=== PATIENT | female | born 1935 | race Caucasian/White ===

== ENCOUNTER 2016-09-13 15:39 | Inpatient (IN) | payer MEDICARE ==
[2016-09-13] VITALS (10 sets, daily range): BP systolic 166–210; BP diastolic 77–110
[~2016-09-13] VITALS: Ht 160 cm; Wt 68.0 kg
--- NOTE | ~2016-09-13 | EKG ---
[place], [place] ELECTROCARDIOGRAM REPORT NAME: KATIE EASTON UNIT #: [id number] ROOM: 406 DOCTOR: SHANKAR HAWTHORNE MD BIRTHDATE: [birth year] DOS: 09/13/2016 TIME: 16 hours and 10 minutes. EKG shows sinus rhythm at the heart rate of 64 beats per minute. Normal cardiac axis. Some nonspecific ST-T abnormality. No previous EKG available for comparison. SHANKAR HAWTHORNE MD CM:EKGRPT:ELECTROCARDIOGRAM REPORT [id number] SHANKAR HAWTHORNE MD
[~2016-09-13 15:39] MED LIST: AMLODIPINE5 MG PO; ATOXIMETIN-B1 CAP; B12,B-12,B 12500 MC1 PO; BACTRIM DS 8001 TA1 PO; CALCIUM 500500 M1 PO; CALCIUM 600600 M2 PO; CEPACOL2 M1 MM; CIPRO250 MG PO; CITALOPRAM10 MG PO; COLACE100 MG PO; CYMBALTA20 M1 PO; CYMBALTA30 MG PO; Cimetidine300 MG PO; Ciprofloxacin2.5 ML OT; FLEXERIL5 MG PO; HYDROCODONE BIT1 T11 PO; LOPRESSOR25 MG PO; LOVENOX30 MG/0.3 SC; MAPAP325 MG PO; METOPROLOL SUCC50 M1 PO; MIRALAX17 GM/DOSE PO; MULTIPLE VITAMI1 TAB PO; NORVASC5 MG PO; OXYCODONE5 M1 PO; Oscal,Oyster S500 MG PO; PREDNISONE5 MG; PRESERVISION1 SGL PO; PROAIR HFA0.09 MG/AC INH; SEPTRA DS 800 M1 TAB PO; TEARS NATURALE,15 ML OPH; VITAMIN D31000 IU PO; VITAMIN D3400 UNIT PO; ZOFRAN ODT4 MG SL
[2016-09-13] MEDS ORDERED: VITAMIN D3400 UNIT PO (15:41)
[2016-09-13] MEDS ORDERED: ALENDRONATE SOD35 M1 PO (15:42)
[2016-09-13] MEDS ORDERED: CRESTOR5 MG PO (15:43)
[2016-09-13] MEDS ORDERED: METOPROLOL SUCC50 M1 PO (15:45)
[2016-09-13] MEDS ORDERED: GENTEAL OP (15:45)
[2016-09-13] MEDS ORDERED: ZYRTEC10 MG PO (15:46)
[2016-09-13 16:27] LABS: BASO # 0.1 10*3/uL (0.0-0.1); BASO % 1.7 % (0.0-1.0); EOS # 0.2 10*3/uL (0.0-0.4); EOS % 3.5 % (1.0-4.0); HEMATOCRIT 41.3 % (37.0-47.0); HEMOGLOBIN 13.1 g/dl (12.0-16.0); LYMPH # 1.4 10*3/uL (1.3-4.4); LYMPH % 23.3 % (27.0-41.0); MEAN CELL VOLUME 92.2 fl (81.0-99.0); MEAN CORPUSCULAR HGB 29.2 pg (27.0-31.0); MEAN CORPUSCULAR HGB CONC 31.7 g/dl (33.0-37.0); MEAN PLATELET VOLUME 9.6 fl (9.6-12.3); MONO # 0.6 10*3/uL (0.1-1.0); MONO % 9.8 % (3.0-9.0); NEUT # 3.7 10*3/uL (2.3-7.9); NEUT % 61.4 % (47.0-73.0); PLATELET COUNT AUTOMATED 254 10*3/uL (130-400); RED BLOOD COUNT 4.48 10*6/uL (4.10-5.10); RED CELL DISTRI WIDTH 12.6 % (0-14.5)
[2016-09-13 16:36] LABS: INTERNATIONAL NORM RATIO 0.9 (2.0-3.5)
[2016-09-13 16:45] LABS: ALBUMIN 3.2 gm/dl (3.1-4.5); BILIRUBIN, TOTAL 0.2 mg/dl (0.2-1.0); BUN 18 mg/dl (7-24); CARBON DIOXIDE 29 mmol/L (21-32); CHLORIDE 105 mmol/L (98-107); EST GLOM FILT AFRICAN AMERICAN > 60 ml/min; GLUCOSE 93 mg/dL (65-99); MAGNESIUM 2.5 mg/dL (1.5-2.1); POTASSIUM 4.1 mmol/L (3.5-5.1); SGOT/AST 25 IU/L (3-35); SGPT/ALT 21 U/L (12-78); SODIUM 141 mmol/L (136-145)
[2016-09-13 16:47] LABS: ALKALINE PHOSPHATASE 86 U/L (45-117)
[2016-09-14] VITALS (11 sets, daily range): BP systolic 131–200; BP diastolic 53–90
[2016-09-14 06:12] LABS: BASO # 0.1 10*3/uL (0.0-0.1); BASO % 1.3 % (0.0-1.0); CKMB 1.2 ng/ml (0.5-3.6); EOS # 0.2 10*3/uL (0.0-0.4); EOS % 3.7 % (1.0-4.0); HEMATOCRIT 36.4 % (37.0-47.0); HEMOGLOBIN 11.7 g/dl (12.0-16.0); LYMPH # 0.9 10*3/uL (1.3-4.4); LYMPH % 19.1 % (27.0-41.0); MEAN CELL VOLUME 90.5 fl (81.0-99.0); MEAN CORPUSCULAR HGB 29.1 pg (27.0-31.0); MEAN CORPUSCULAR HGB CONC 32.1 g/dl (33.0-37.0); MEAN PLATELET VOLUME 9.4 fl (9.6-12.3); MONO # 0.5 10*3/uL (0.1-1.0); MONO % 11.6 % (3.0-9.0); NEUT % 64.1 % (47.0-73.0); PLATELET COUNT AUTOMATED 222 10*3/uL (130-400); RED BLOOD COUNT 4.02 10*6/uL (4.10-5.10); RED CELL DISTRI WIDTH 12.6 % (0-14.5); WHITE BLOOD COUNT 4.7 10*3/uL (4.8-10.8)
[2016-09-14 06:28] LABS: ALBUMIN 2.9 gm/dl (3.1-4.5); ALKALINE PHOSPHATASE 69 U/L (45-117); BILIRUBIN, TOTAL 0.3 mg/dl (0.2-1.0); BUN 14 mg/dl (7-24); CARBON DIOXIDE 29 mmol/L (21-32); CHLORIDE 104 mmol/L (98-107); EST GLOM FILT AFRICAN AMERICAN > 60 ml/min; GLUCOSE 88 mg/dL (65-99); POTASSIUM 4.1 mmol/L (3.5-5.1); SGOT/AST 20 IU/L (3-35); SGPT/ALT 16 U/L (12-78); SODIUM 141 mmol/L (136-145)
[2016-09-14 06:33] LABS: PROTHROMBIN TIME 10.2 SECONDS (9.0-12.4)
[2016-09-14 06:39] LABS: FREE T4 0.95 ng/dl (0.76-1.46); THYROID STIM HORMONE (HS) 2.83 uIU/ml (0.358-4.75)
[2016-09-14 07:42] LABS: FOLIC ACID 17.29 ng/mL (>5.38)
[2016-09-14 07:55] LABS: HEMOGLOBIN A1c 5.5 % (4.8-5.6)
[2016-09-14 12:11] LABS: CKMB 1.1 ng/ml (0.5-3.6)
[2016-09-15] VITALS: BP 165/62
[2016-09-15 04:00] VITALS: BP 172/72
[2016-09-15 08:00] VITALS: BP 154/60
[2016-09-15 08:13] VITALS: BP 168/82
[2016-09-15] MEDS ORDERED: AMLODIPINE BESYL5 MG PO (11:09)
[2016-09-15] MEDS ORDERED: LISINOPRIL20 MG PO (11:09)
[2016-09-15 12:00] VITALS: BP 151/73
== END 2016-09-15 14:45 | disposition home or self-care (01) | DRG 683 ==
LOC: ED 15:39 → EDHOLD 18:08 → 4E 18:44
PROVIDERS: Internal Medicine; Registered Nurse
DX: I12.9 Hypertensive chronic kidney disease with stage 1 through stage 4 chronic kidney disease, or unspecified chronic kidney disease (principal); E44.0 Moderate protein-calorie malnutrition; J84.10 Pulmonary fibrosis, unspecified; E83.41 Hypermagnesemia; N18.3 Chronic kidney disease, stage 3 (moderate); J44.9 Chronic obstructive pulmonary disease, unspecified; F32.9 Major depressive disorder, single episode, unspecified; G30.9 Alzheimer's disease, unspecified; F02.80 Dementia in other diseases classified elsewhere, unspecified severity, without behavioral disturbance, psychotic disturbance, mood disturbance, and anxiety; M81.0 Age-related osteoporosis without current pathological fracture; D64.9 Anemia, unspecified; D72.819 Decreased white blood cell count, unspecified; E55.9 Vitamin D deficiency, unspecified; Z68.26 Body mass index [BMI] 26.0-26.9, adult; Z87.81 Personal history of (healed) traumatic fracture; Z90.710 Acquired absence of both cervix and uterus; Z98.890 Other specified postprocedural states; Z79.899 Other long term (current) drug therapy; Z88.0 Allergy status to penicillin; Z88.8 Allergy status to other drugs, medicaments and biological substances; Z80.8 Family history of malignant neoplasm of other organs or systems

== ENCOUNTER 2016-12-06 16:15 | Inpatient (IN) | payer MEDICARE ==
[~2016-12-06] VITALS: Ht 162.5 cm; Wt 65.8 kg
--- NOTE | ~2016-12-06 | PR ---
[place], [place] PROGRESS NOTE [id number] UN[facility] #: [id number] ROOM: 309 DOCTOR: KAYLI AMATO BIRTHDATE: [birth year] DOS: CHIEF COMPLAINT: "Good morning." SUMMARY OF VISIT: The patient was assessed in the dining room where she was eating breakfast. She is slow responses to my questions, but was pleasant. Good eye contact. No voiced complaints. MENTAL STATUS: She is alert and oriented to person, place, I do not believe time. Mood definitely trending towards euthymic. Affect is appropriate. There is no bam or hypomania. No overt auditory or visual hallucinations, delusions, or paranoia. Short-term memory is poor. PLAN: Her Exelon patch was maxed out yesterday. I will go ahead and increase her Namenda. The plan is to discharge her possibly as soon as tomorrow if she continues to be stable and tolerate the medication adjustments. BEN AMATO CNP CM:PNTRANS [id number] KAYLI AMATO 12/11/16 1033 interface
--- NOTE | ~2016-12-06 | PR ---
[place], [place] PROGRESS NOTE NAME: KATIE EASTON UNIT #: [id number] ROOM: 309 DOCTOR: ELVIN DENSON MD BIRTHDATE: [birth year] DOS: 12/10/2016 CHIEF COMPLAINT: "I am not feeling well. I do not know what is wrong." SUMMARY OF THE VISIT: The patient was interviewed as she was resting quietly in bed. She was awake and engaged readily in conversation. She was even spontaneous at times, but very superficial. She was bright and pleasant for the most part, although she does report still not feeling quite right, but was not totally able to elucidate what was going on. She denied any medication side effects. Her major complaint focused on being somewhat easily fatigued and tired out. MENTAL STATUS: She is alert and oriented to person, place, not necessarily time. Mood does seem to be trending towards euthymia. Affect is more appropriate. There are no symptoms of bam or hypomania. There are no overt auditory or visual hallucinations noted. Short term memory is poor, otherwise she is fairly intact. PLAN: At this point, I will continue to titrate both the Namenda and the Exelon. I will maximize Exelon patch from 9.5 to 13.3 mg a day, ultimately then planning to increase the Namenda at a later date, maintain her current psychotropic regimen at this point in time, engage in individual and paz milieu activity with the plan then to return to the least restrictive environment when stable. ELVIN DENSON MD CM:PNTRANS [id number] ELVIN DENSON MD 12/10/16 0852 interface
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
--- NOTE | ~2016-12-06 | PR ---
[place], [place] PROGRESS NOTE NAME: KATIE EASTON UNIT #: [id number] ROOM: 310 DOCTOR: ELVIN DENSON MD BIRTHDATE: [birth year] DOS: 12/08/2016 CHIEF COMPLAINT: "Good morning. What is going to happen next?" SUMMARY OF THE VISIT: The patient was interviewed in the dining area where she was sitting with female peers. She engaged readily in conversation. She did report that she remembered me from yesterday stating that she had a good day yesterday and slept well and had a good breakfast. She was somewhat vague on these points and was not able to tell me what she had to eat. She was pleasant, however, and exhibited no agitation or aggression. MENTAL STATUS: She is alert and oriented to person, place but not necessarily time. Mood does seem to be trending towards euthymia and affect is more appropriate. There are no symptoms of bam or hypomania. There are no overt auditory or visual hallucinations. No delusions or paranoia are noted. Short term memory has gaps, otherwise she is intact. PLAN: I will increase her Exelon patch from 4.6 mg daily to 9.5 mg daily to attempt to maximize potential benefits in improving ADLs, behavior, and cognition, engage in individual and paz milieu activity with the plan to return to the least restrictive environment when stable. ELVIN DENSON MD CM:PNTRANS [id number] ELVIN DENSON MD 12/08/16 1002 interface
--- NOTE | ~2016-12-06 | PR ---
[place], [place] PROGRESS NOTE NAME: KATIE EASTON UNIT #: [id number] ROOM: 310 DOCTOR: ELVIN DENSON MD BIRTHDATE: [birth year] DOS: 12/09/2016 CHIEF COMPLAINT: "I just want to stay in bed, thank you." SUMMARY OF THE VISIT: The patient was interviewed as she rested quietly in bed. She was awake and engaged readily in very superficial conversation. She reported that she did not feel well and did not want to get out of bed. She did not elaborate or was not able to elaborate on what exactly was wrong. She was very vague overall. She did remember that she lives in [place], but could not tell me exactly how long she has been here in the hospital. MENTAL STATUS: She is alert and oriented to person, possibly place, but not time. Mood does seem to be rather down and depressed. There are some anxious overtones. She voiced no psychotic symptoms. There was no voiced paranoia. No auditory or visual hallucinations were discussed. She processed slowly and short-term memory was poor. PLAN: I will increase Namenda from 5 mg a day to 5 mg twice daily, augmenting the Exelon patch which is at 9.5 mg a day. Ultimately, I would bring the Exelon patch up to 13.3 mg a day. Continue to engage in individual and paz milieu activity with the plan to return home or to an alternative placement when stable. ELVIN DENSON MD CM:PNTRANS 4 3 ELVIN DENSON MD 12/09/16923 interface
[~2016-12-06 16:15] MED LIST changes: +ALENDRONATE SOD35 M1 PO; +AMLODIPINE BESYL5 MG PO; +CRESTOR5 MG PO; +GENTEAL OP; +LISINOPRIL20 MG PO; +ZYRTEC10 MG PO
[2016-12-06 16:40] VITALS: BP 183/81
[2016-12-06 17:05] LABS: BASO # 0.1 10*3/uL (0.0-0.1); BASO % 1.3 % (0.0-1.0); EOS # 0.1 10*3/uL (0.0-0.4); EOS % 2.4 % (1.0-4.0); HEMATOCRIT 35.7 % (37.0-47.0); HEMOGLOBIN 11.5 g/dl (12.0-16.0); LYMPH # 1.1 10*3/uL (1.3-4.4); LYMPH % 23.9 % (27.0-41.0); MEAN CELL VOLUME 89.5 fl (81.0-99.0); MEAN CORPUSCULAR HGB 28.8 pg (27.0-31.0); MEAN CORPUSCULAR HGB CONC 32.2 g/dl (33.0-37.0); MONO # 0.5 10*3/uL (0.1-1.0); MONO % 11.1 % (3.0-9.0); NEUT # 2.9 10*3/uL (2.3-7.9); NEUT % 61.1 % (47.0-73.0); PLATELET COUNT AUTOMATED 248 10*3/uL (130-400); RED BLOOD COUNT 3.99 10*6/uL (4.10-5.10); RED CELL DISTRI WIDTH 12.9 % (0-14.5); WHITE BLOOD COUNT 4.7 10*3/uL (4.8-10.8)
[2016-12-06 17:19] LABS: ALBUMIN 3.1 gm/dl (3.1-4.5); ALKALINE PHOSPHATASE 78 U/L (45-117); BILIRUBIN, TOTAL 0.3 mg/dl (0.2-1.0); BUN 16 mg/dl (7-24); CARBON DIOXIDE 30 mmol/L (21-32); CHLORIDE 105 mmol/L (98-107); EST GLOM FILT AFRICAN AMERICAN > 60 ml/min; GLUCOSE 94 mg/dL (65-99); POTASSIUM 4.4 mmol/L (3.5-5.1); SGOT/AST 22 IU/L (3-35); SGPT/ALT 19 U/L (12-78); SODIUM 143 mmol/L (136-145); TOTAL PROTEIN 7.3 gm/dL (6.4-8.2)
[2016-12-06 17:42] LABS: BILIRUBIN NEGATIVE (NEGATIVE); BLOOD TRACE-INTACT (NEGATIVE); CLARITY CLEAR (CLEAR); COLOR YELLOW (YELLOW); GLUCOSE NEGATIVE (NEGATIVE); KETONE NEGATIVE (NEGATIVE); LEUKO ESTERASE NEGATIVE (NEGATIVE); NITRITE NEGATIVE (NEGATIVE); PROTEIN NEGATIVE (NEGATIVE); SPECIFIC GRAVITY 1.015 (1.005-1.030); UROBILINOGEN 0.2 E.U./dl (0.2-1.0)
[2016-12-06 17:53] LABS: RBC 0-2 rbc/hpf (0-2); URINE REFLEX COMMENT NO (NO); WBC 0-2 wbc/hpf (0-5)
[2016-12-06 19:50] VITALS: BP 148/75
[2016-12-06 21:46] VITALS: BP 148/75
[2016-12-06 21:48] VITALS: BP 148/75
[2016-12-07 07:17] LABS: BASO # 0.1 10*3/uL (0.0-0.1); BASO % 1.4 % (0.0-1.0); EOS # 0.2 10*3/uL (0.0-0.4); EOS % 4.3 % (1.0-4.0); HEMATOCRIT 36.5 % (37.0-47.0); HEMOGLOBIN 11.9 g/dl (12.0-16.0); LYMPH # 0.8 10*3/uL (1.3-4.4); LYMPH % 23.6 % (27.0-41.0); MEAN CORPUSCULAR HGB CONC 32.6 g/dl (33.0-37.0); MONO # 0.4 10*3/uL (0.1-1.0); MONO % 12.1 % (3.0-9.0); NEUT % 58.6 % (47.0-73.0); PLATELET COUNT AUTOMATED 246 10*3/uL (130-400); WHITE BLOOD COUNT 3.5 10*3/uL (4.8-10.8)
[2016-12-07 07:44] VITALS: BP 128/69
[2016-12-07 07:45] VITALS: BP 128/69
[2016-12-07 07:47] LABS: ALBUMIN 2.9 gm/dl (3.1-4.5); ALKALINE PHOSPHATASE 80 U/L (45-117); BILIRUBIN, TOTAL 0.5 mg/dl (0.2-1.0); BUN 12 mg/dl (7-24); CARBON DIOXIDE 29 mmol/L (21-32); CHLORIDE 106 mmol/L (98-107); EST GLOM FILT AFRICAN AMERICAN > 60 ml/min; GLUCOSE 79 mg/dL (65-99); POTASSIUM 4.2 mmol/L (3.5-5.1); SGOT/AST 26 IU/L (3-35); SGPT/ALT 22 U/L (12-78); SODIUM 144 mmol/L (136-145)
[2016-12-07 08:30] LABS: VITAMIN D, 25-HYDROXY 18.9 ng/mL (30-100)
[2016-12-07 19:54] VITALS: BP 146/82; BP 158/63
[2016-12-07 20:00] VITALS: BP 146/82
[2016-12-08 07:46] VITALS: BP 132/65
[2016-12-08 19:48] VITALS: BP 148/71
[2016-12-08 20:00] VITALS: BP 148/71
[2016-12-09 08:00] VITALS: BP 142/62
[2016-12-09 20:00] VITALS: BP 136/56
[2016-12-09 20:31] VITALS: BP 136/55
[2016-12-10 08:00] VITALS: BP 137/64
[2016-12-10 19:00] VITALS: BP 131/69
[2016-12-10 20:49] VITALS: BP 131/69
[2016-12-11 07:41] VITALS: BP 122/53
[2016-12-11 19:36] VITALS: BP 135/60
[2016-12-12 07:17] VITALS: BP 146/75
[2016-12-12] MEDS ORDERED: NAMENDA-5 PO (08:47)
[2016-12-12] MEDS ORDERED: RISPERIDONE0.25 M2 PO (08:47)
[2016-12-12] MEDS ORDERED: MEMANTINE HCL10 MG PO (08:47)
[2016-12-12] MEDS ORDERED: EXELON13.3 MG/21 T (08:47)
[2016-12-12] MEDS ORDERED: VITAMIN D50000 I3 PO (08:47)
[2016-12-12] MEDS ORDERED: PREDNISONE10 MG PO (08:57)
[2016-12-12] MEDS ORDERED: AVPAK AZITHROM250 M1 PO (08:57)
[2016-12-12 09:02] VITALS: BP 146/75
== END 2016-12-12 14:15 | disposition home or self-care (01) | DRG 57 ==
LOC: ED 16:15 → 3N 19:38
PROVIDERS: Nurse Practitioner Adult Health; Registered Nurse
DX: G30.9 Alzheimer's disease, unspecified (principal); F02.81 Dementia in other diseases classified elsewhere, unspecified severity, with behavioral disturbance; F33.3 Major depressive disorder, recurrent, severe with psychotic symptoms; R00.1 Bradycardia, unspecified; J44.9 Chronic obstructive pulmonary disease, unspecified; F23 Brief psychotic disorder; N18.3 Chronic kidney disease, stage 3 (moderate); I12.9 Hypertensive chronic kidney disease with stage 1 through stage 4 chronic kidney disease, or unspecified chronic kidney disease; R31.29 Other microscopic hematuria; R27.0 Ataxia, unspecified; M81.0 Age-related osteoporosis without current pathological fracture; D64.9 Anemia, unspecified; E55.9 Vitamin D deficiency, unspecified; D72.810 Lymphocytopenia; Z90.710 Acquired absence of both cervix and uterus; Z88.0 Allergy status to penicillin; Z88.8 Allergy status to other drugs, medicaments and biological substances; Z80.8 Family history of malignant neoplasm of other organs or systems

== ENCOUNTER → 2016-12-16 | Outpatient (CLI) | payer MEDICARE ==
[~2016-12-16] MED LIST changes: +AVPAK AZITHROM250 M1 PO; +EXELON13.3 MG/21 T; +MEMANTINE HCL10 MG PO; +NAMENDA-5 PO; +PREDNISONE10 MG PO; +RISPERIDONE0.25 M2 PO; +VITAMIN D50000 I3 PO
== END | disposition home or self-care (01) ==
LOC: RAD 15:16
DX: J98.4 Other disorders of lung (principal); R09.89 Other specified symptoms and signs involving the circulatory and respiratory systems; R68.89 Other general symptoms and signs

== ENCOUNTER 2017-01-12 20:29 | Inpatient (IN) | payer MEDICARE ==
[~2017-01-12] VITALS: Ht 165.1 cm; Wt 63.6 kg
[2017-01-12 20:29] VITALS: BP 127/57
[2017-01-12 20:59] VITALS: BP 127/57
[2017-01-12 21:18] LABS: BASO # 0.1 10*3/uL (0.0-0.1); BASO % 0.9 % (0.0-1.0); EOS # 0.1 10*3/uL (0.0-0.4); EOS % 2.2 % (1.0-4.0); HEMATOCRIT 35.3 % (37.0-47.0); HEMOGLOBIN 11.1 g/dl (12.0-16.0); LYMPH # 0.9 10*3/uL (1.3-4.4); LYMPH % 17.3 % (27.0-41.0); MEAN CELL VOLUME 91.5 fl (81.0-99.0); MEAN CORPUSCULAR HGB 28.8 pg (27.0-31.0); MEAN CORPUSCULAR HGB CONC 31.4 g/dl (33.0-37.0); MEAN PLATELET VOLUME 9.3 fl (9.6-12.3); MONO # 0.4 10*3/uL (0.1-1.0); MONO % 8.2 % (3.0-9.0); NEUT # 3.8 10*3/uL (2.3-7.9); PLATELET COUNT AUTOMATED 248 10*3/uL (130-400); RED BLOOD COUNT 3.86 10*6/uL (4.10-5.10); RED CELL DISTRI WIDTH 12.7 % (0-14.5); WHITE BLOOD COUNT 5.4 10*3/uL (4.8-10.8)
[2017-01-12 21:34] LABS: CKMB 0.5 ng/ml (0.5-3.6); MAGNESIUM 2.3 mg/dL (1.5-2.1); POTASSIUM 3.7 mmol/L (3.5-5.1); TROPONIN I 0.019 ng/ml (<0.045)
[2017-01-12] MEDS ORDERED: FLUOXETINE HCL10 MG PO (21:42)
[2017-01-12] MEDS ORDERED: QUETIAPINE FUMA25 M1 PO (21:42)
[2017-01-12 22:04] LABS: BILIRUBIN NEGATIVE (NEGATIVE); BLOOD NEGATIVE (NEGATIVE); CLARITY SL CLOUDY (CLEAR); COLOR YELLOW (YELLOW); GLUCOSE NEGATIVE (NEGATIVE); KETONE NEGATIVE (NEGATIVE); LEUKO ESTERASE NEGATIVE (NEGATIVE); NITRITE NEGATIVE (NEGATIVE); PH 6.5 (5.0-9.0); PROTEIN NEGATIVE (NEGATIVE); SPECIFIC GRAVITY 1.015 (1.005-1.030); UROBILINOGEN 0.2 E.U./dl (0.2-1.0)
[2017-01-12 22:21] LABS: MUCOUS TRACE; RBC 0-2 rbc/hpf (0-2); WBC 0-2 wbc/hpf (0-5)
[2017-01-12 22:22] LABS: BACTERIA 2+; URINE REFLEX COMMENT YES (NO)
[2017-01-12 23:00] VITALS: BP 121/54
[2017-01-12 23:25] VITALS: BP 121/54
[2017-01-12 23:54] VITALS: BP 121/54
[2017-01-13 04:00] VITALS: BP 118/50
[2017-01-13 06:36] LABS: BASO % 0.6 % (0.0-1.0); CPK 38 U/L (26-192); EOS # 0.1 10*3/uL (0.0-0.4); EOS % 1.9 % (1.0-4.0); HEMATOCRIT 35.8 % (37.0-47.0); HEMOGLOBIN 11.5 g/dl (12.0-16.0); LYMPH # 0.9 10*3/uL (1.3-4.4); LYMPH % 19.7 % (27.0-41.0); MEAN CELL VOLUME 89.9 fl (81.0-99.0); MEAN CORPUSCULAR HGB 28.9 pg (27.0-31.0); MEAN CORPUSCULAR HGB CONC 32.1 g/dl (33.0-37.0); MEAN PLATELET VOLUME 9.4 fl (9.6-12.3); MONO # 0.5 10*3/uL (0.1-1.0); MONO % 10.4 % (3.0-9.0); NEUT # 3.1 10*3/uL (2.3-7.9); NEUT % 67.2 % (47.0-73.0); PLATELET COUNT AUTOMATED 252 10*3/uL (130-400); RED BLOOD COUNT 3.98 10*6/uL (4.10-5.10); RED CELL DISTRI WIDTH 12.7 % (0-14.5); TROPONIN I 0.021 ng/ml (<0.045); WHITE BLOOD COUNT 4.6 10*3/uL (4.8-10.8)
[2017-01-13 06:45] LABS: CKMB < 0.5 ng/ml (0.5-3.6)
[2017-01-13 06:53] LABS: PROTHROMBIN TIME 10.5 SECONDS (9.0-12.4)
[2017-01-13 07:04] LABS: ALBUMIN 2.6 gm/dl (3.1-4.5); ALKALINE PHOSPHATASE 78 U/L (45-117); BILIRUBIN, TOTAL 0.3 mg/dl (0.2-1.0); BUN 15 mg/dl (7-24); CARBON DIOXIDE 28 mmol/L (21-32); CHLORIDE 111 mmol/L (98-107); CHOLESTEROL 148 mg/dL (<200); EST GLOM FILT AFRICAN AMERICAN > 60 ml/min; FREE T4 1.06 ng/dl (0.76-1.46); GLUCOSE 75 mg/dL (65-99); HDL CHOLESTEROL 71 mg/dl (40-60); LDL CHOLESTEROL 64 mg/dL (9-159); MAGNESIUM 2.3 mg/dL (1.5-2.1); PHOSPHOROUS 3.1 mg/dL (2.5-4.9); POTASSIUM 3.6 mmol/L (3.5-5.1); SGOT/AST 18 IU/L (3-35); SGPT/ALT 12 U/L (12-78); SODIUM 146 mmol/L (136-145); TOTAL PROTEIN 6.7 gm/dL (6.4-8.2); TRIGLYCERIDES 65 mg/dl (<150); VLDL CHOLESTEROL 13 mg/dL (6-40)
[2017-01-13 08:00] VITALS: BP 128/50
[2017-01-13 08:49] LABS: HEMOGLOBIN A1c 5.4 % (4.8-5.6)
[2017-01-13 10:42] LABS: VITAMIN D, 25-HYDROXY 26.2 ng/mL (30-100)
[2017-01-13 11:07] LABS: FOLIC ACID > 24.00 ng/mL (>5.38)
[2017-01-13 12:00] VITALS: BP 150/60
[2017-01-13 12:28] LABS: CKMB 0.6 ng/ml (0.5-3.6); TROPONIN I 0.021 ng/ml (<0.045)
[2017-01-13 16:00] VITALS: BP 101/47
[2017-01-13 18:48] LABS: CKMB 0.7 ng/ml (0.5-3.6); TROPONIN I 0.019 ng/ml (<0.045)
[2017-01-13 20:00] VITALS: BP 110/52
[2017-01-14] VITALS: BP 152/67
[2017-01-14 08:00] VITALS: BP 155/64
[2017-01-14 12:00] VITALS: BP 135/63
[2017-01-14 16:00] VITALS: BP 149/64
[2017-01-14 20:00] VITALS: BP 146/73
[2017-01-15 00:01] VITALS: BP 153/65
[2017-01-15 08:00] VITALS: BP 152/69
[2017-01-15 16:00] VITALS: BP 133/61
[2017-01-15 20:00] VITALS: BP 126/61
[2017-01-16 00:16] VITALS: BP 108/68
[2017-01-16 07:00] LABS: BASO # 0.1 10*3/uL (0.0-0.1); EOS # 0.2 10*3/uL (0.0-0.4); EOS % 3.5 % (1.0-4.0); HEMATOCRIT 35.9 % (37.0-47.0); HEMOGLOBIN 11.7 g/dl (12.0-16.0); LYMPH # 0.9 10*3/uL (1.3-4.4); LYMPH % 16.1 % (27.0-41.0); MEAN CELL VOLUME 89.8 fl (81.0-99.0); MEAN CORPUSCULAR HGB 29.3 pg (27.0-31.0); MEAN CORPUSCULAR HGB CONC 32.6 g/dl (33.0-37.0); MEAN PLATELET VOLUME 9.4 fl (9.6-12.3); MONO # 0.6 10*3/uL (0.1-1.0); NEUT # 3.9 10*3/uL (2.3-7.9); NEUT % 68.2 % (47.0-73.0); PLATELET COUNT AUTOMATED 255 10*3/uL (130-400); WHITE BLOOD COUNT 5.7 10*3/uL (4.8-10.8)
[2017-01-16 07:27] LABS: BUN 26 mg/dl (7-24); EST GLOM FILT AFRICAN AMERICAN > 60 ml/min
[2017-01-16 08:00] VITALS: BP 152/68
[2017-01-16 12:00] VITALS: BP 139/69
[2017-01-16 16:00] VITALS: BP 121/53
[2017-01-16 20:00] VITALS: BP 148/68
[2017-01-17] VITALS: BP 155/69
[2017-01-17 08:00] VITALS: BP 154/70
[2017-01-17 12:00] VITALS: BP 139/62
[2017-01-17 16:00] VITALS: BP 135/58
[2017-01-17 20:00] VITALS: BP 135/62
[2017-01-18] VITALS: BP 114/50
[2017-01-18 08:00] VITALS: BP 142/61
[2017-01-18 12:00] VITALS: BP 130/58
[2017-01-18 16:00] VITALS: BP 144/80
[2017-01-18 20:00] VITALS: BP 113/61
[2017-01-19] VITALS: BP 137/62
[2017-01-19 07:32] LABS: BUN 27 mg/dl (7-24); EST GLOM FILT AFRICAN AMERICAN > 60 ml/min
[2017-01-19 08:00] VITALS: BP 138/64
[2017-01-19 12:00] VITALS: BP 125/63
[2017-01-19 16:00] VITALS: BP 130/54
[2017-01-19 20:00] VITALS: BP 134/57
[2017-01-20] VITALS: BP 132/57
[2017-01-20 07:37] LABS: BASO # 0.1 10*3/uL (0.0-0.1); BASO % 1.6 % (0.0-1.0); EOS # 0.2 10*3/uL (0.0-0.4); EOS % 3.5 % (1.0-4.0); HEMATOCRIT 37.5 % (37.0-47.0); HEMOGLOBIN 12.4 g/dl (12.0-16.0); LYMPH # 0.9 10*3/uL (1.3-4.4); LYMPH % 18.3 % (27.0-41.0); MEAN CELL VOLUME 87.8 fl (81.0-99.0); MEAN CORPUSCULAR HGB CONC 33.1 g/dl (33.0-37.0); MEAN PLATELET VOLUME 9.5 fl (9.6-12.3); MONO # 0.5 10*3/uL (0.1-1.0); MONO % 10.5 % (3.0-9.0); NEUT # 3.2 10*3/uL (2.3-7.9); NEUT % 65.7 % (47.0-73.0); PLATELET COUNT AUTOMATED 228 10*3/uL (130-400); RED BLOOD COUNT 4.27 10*6/uL (4.10-5.10); RED CELL DISTRI WIDTH 13.1 % (0-14.5); WHITE BLOOD COUNT 4.9 10*3/uL (4.8-10.8)
[2017-01-20 08:00] VITALS: BP 156/67
[2017-01-20 12:00] VITALS: BP 142/62
[2017-01-20 16:00] VITALS: BP 127/51
[2017-01-20 20:00] VITALS: BP 119/64
[2017-01-21] VITALS: BP 142/60
[2017-01-21 08:00] VITALS: BP 149/66
[2017-01-21 12:00] VITALS: BP 145/63
[2017-01-21] MEDS ORDERED: D-1000 185 MG-11 TAB PO (13:50)
== END 2017-01-21 17:59 | disposition other institution (70) | DRG 177 ==
LOC: ED 20:29 → 4E 22:03 → EDHOLD 22:03 → 4E 22:10
PROVIDERS: Internal Medicine; Student in an Organized Health Care Education/Training Program
DX: J15.6 Pneumonia due to other Gram-negative bacteria (principal); N17.0 Acute kidney failure with tubular necrosis; E43 Unspecified severe protein-calorie malnutrition; G30.9 Alzheimer's disease, unspecified; F02.81 Dementia in other diseases classified elsewhere, unspecified severity, with behavioral disturbance; D64.9 Anemia, unspecified; R82.71 Bacteriuria; J44.9 Chronic obstructive pulmonary disease, unspecified; J90 Pleural effusion, not elsewhere classified; F33.9 Major depressive disorder, recurrent, unspecified; E87.1 Hypo-osmolality and hyponatremia; N18.3 Chronic kidney disease, stage 3 (moderate); I12.9 Hypertensive chronic kidney disease with stage 1 through stage 4 chronic kidney disease, or unspecified chronic kidney disease; M81.0 Age-related osteoporosis without current pathological fracture; R27.0 Ataxia, unspecified; E55.9 Vitamin D deficiency, unspecified; Z88.0 Allergy status to penicillin; Z88.8 Allergy status to other drugs, medicaments and biological substances; Z87.01 Personal history of pneumonia (recurrent); Z90.710 Acquired absence of both cervix and uterus; Z79.899 Other long term (current) drug therapy; Z68.28 Body mass index [BMI] 28.0-28.9, adult

== ENCOUNTER → 2017-02-07 | Outpatient (CLI) | payer MEDICARE ==
[~2017-02-07] MED LIST changes: +D-1000 185 MG-11 TAB PO; +FLUOXETINE HCL10 MG PO; +QUETIAPINE FUMA25 M1 PO
== END | disposition home or self-care (01) ==
LOC: CT 01-31 14:00
DX: J90 Pleural effusion, not elsewhere classified (principal); J98.4 Other disorders of lung; I25.10 Atherosclerotic heart disease of native coronary artery without angina pectoris; K46.9 Unspecified abdominal hernia without obstruction or gangrene

== ENCOUNTER 2017-05-25 11:33 | Emergency (ER) | payer MEDICARE ==
[~2017-05-25] VITALS: Wt 59.0 kg
== END 2017-05-25 14:28 | disposition home or self-care (01) ==
LOC: ED 11:33
DX: S60.211A Contusion of right wrist, initial encounter (principal); S30.0XXA Contusion of lower back and pelvis, initial encounter; Z90.710 Acquired absence of both cervix and uterus; Z79.899 Other long term (current) drug therapy; Z88.0 Allergy status to penicillin; Z88.8 Allergy status to other drugs, medicaments and biological substances; Z88.6 Allergy status to analgesic agent; W19.XXXA Unspecified fall, initial encounter; Y93.89 Activity, other specified; Y92.89 Other specified places as the place of occurrence of the external cause; Y99.9 Unspecified external cause status

== ENCOUNTER 2017-05-27 12:40 | Emergency (ER) | payer MEDICARE ==
[~2017-05-27] VITALS: Wt 59.0 kg
[2017-05-27 13:35] LABS: BASO # 0.1 10*3/uL (0.0-0.1); BASO % 0.8 % (0.0-1.0); EOS # 0.2 10*3/uL (0.0-0.4); EOS % 3.8 % (1.0-4.0); HEMATOCRIT 37.7 % (37.0-47.0); LYMPH % 16.1 % (27.0-41.0); MEAN CELL VOLUME 90.2 fl (81.0-99.0); MEAN CORPUSCULAR HGB 28.7 pg (27.0-31.0); MEAN CORPUSCULAR HGB CONC 31.8 g/dl (33.0-37.0); MEAN PLATELET VOLUME 9.8 fl (9.6-12.3); MONO # 0.7 10*3/uL (0.1-1.0); NEUT # 4.1 10*3/uL (2.3-7.9); PLATELET COUNT AUTOMATED 224 10*3/uL (130-400); RED BLOOD COUNT 4.18 10*6/uL (4.10-5.10); RED CELL DISTRI WIDTH 14.5 % (0-14.5)
[2017-05-27 13:50] LABS: ALBUMIN 2.8 gm/dl (3.1-4.5); CREATININE 1.12 mg/dL (0.55-1.02); POTASSIUM 4.1 mmol/L (3.5-5.1); TOTAL PROTEIN 7.5 gm/dL (6.4-8.2)
[2017-05-27 15:02] LABS: BILIRUBIN NEGATIVE (NEGATIVE); BLOOD NEGATIVE (NEGATIVE); CLARITY CLEAR (CLEAR); COLOR YELLOW (YELLOW); GLUCOSE NEGATIVE (NEGATIVE); KETONE NEGATIVE (NEGATIVE); LEUKO ESTERASE NEGATIVE (NEGATIVE); NITRITE NEGATIVE (NEGATIVE); UROBILINOGEN 0.2 E.U./dl (0.2-1.0)
[2017-05-27 15:11] LABS: BACTERIA TRACE; RBC 0-2 rbc/hpf (0-2); WBC 0-2 wbc/hpf (0-5)
== END 2017-05-27 17:07 | disposition short-term general hospital (02) ==
LOC: ED 12:40
PROVIDERS: Emergency Medicine
DX: I63.9 Cerebral infarction, unspecified (principal); I12.9 Hypertensive chronic kidney disease with stage 1 through stage 4 chronic kidney disease, or unspecified chronic kidney disease; N18.3 Chronic kidney disease, stage 3 (moderate); J44.9 Chronic obstructive pulmonary disease, unspecified; M81.0 Age-related osteoporosis without current pathological fracture; Z88.0 Allergy status to penicillin; Z88.8 Allergy status to other drugs, medicaments and biological substances; Z79.899 Other long term (current) drug therapy

== ENCOUNTER → 2018-06-10 | Outpatient (CLI) | payer MEDICARE ==
[~2018-06-10] MED LIST changes: +ACETAMINOPHEN325 M3 PO; +ASPIRIN CHEWABL81 MG PO; +ATORVASTATIN CA80 M1 PO; +BISACODYL LAXATI5 MG PO; +LASIX20 MG PO; +LOSARTAN POTASS25 M1 PO; +LOSARTAN POTASS50 M1 PO; +Lopressor25 MG PO; +MACROBID100 M1 PO; +MILK OF MA2400 MG/10 PO; +MILK OF MA400 MG/5 M PO; +NAMENDA10 MG PO; +NATURAL BALANCE15 M1 OP; +PLAVIX75 M1 PO; +REMERON15 M2 PO; +Zofran4 MG SL
== END | disposition home or self-care (01) ==
LOC: RAD 11:07
DX: Z13.820 Encounter for screening for osteoporosis (principal); M81.0 Age-related osteoporosis without current pathological fracture; I12.9 Hypertensive chronic kidney disease with stage 1 through stage 4 chronic kidney disease, or unspecified chronic kidney disease; N18.9 Chronic kidney disease, unspecified; J44.9 Chronic obstructive pulmonary disease, unspecified; F33.9 Major depressive disorder, recurrent, unspecified; Z86.2 Personal history of diseases of the blood and blood-forming organs and certain disorders involving the immune mechanism; Z78.0 Asymptomatic menopausal state

== ENCOUNTER 2020-03-31 01:55 | Inpatient (IN) | payer MEDICARE ==
[2020-03-31] VITALS (12 sets, daily range): BP systolic 115–156; BP diastolic 52–81
[~2020-03-31] VITALS: Ht 167.6 cm; Wt 62.3 kg
[~2020-03-31 01:55] MED LIST changes: +LEVOFLOXACIN250 M2 PO; +MOBIC15 MG PO; +MUCINEX ER600 MG PO; +OYSTER SHELL 51 EACH PO; +VITAMIN D-32000 UNI1 PO
[2020-03-31 02:27] LABS: BASO # 0.1 10*3/uL (0.0-0.1); BASO % 0.5 % (0.0-1.0); EOS # 0.2 10*3/uL (0.0-0.4); EOS % 1.5 % (1.0-4.0); HEMATOCRIT 35.2 % (37.0-47.0); LYMPH # 0.7 10*3/uL (1.3-4.4); LYMPH % 5.6 % (27.0-41.0); MEAN CELL VOLUME 88.2 fl (81.0-99.0); MEAN CORPUSCULAR HGB 28.3 pg (27.0-31.0); MEAN CORPUSCULAR HGB CONC 32.1 g/dl (33.0-37.0); MEAN PLATELET VOLUME 9.9 fl (9.6-12.3); MONO # 0.7 10*3/uL (0.1-1.0); MONO % 6.1 % (3.0-9.0); PLATELET COUNT AUTOMATED 226 10*3/uL (130-400); RED BLOOD COUNT 3.99 10*6/uL (4.10-5.10); RED CELL DISTRI WIDTH 13.7 % (0-14.5); WHITE BLOOD COUNT 11.6 10*3/uL (4.8-10.8)
[2020-03-31 02:45] LABS: ALBUMIN 3.1 gm/dl (3.1-4.5); ALKALINE PHOSPHATASE 93 U/L (45-117); BUN 29 mg/dl (7-24); CHLORIDE 109 mmol/L (98-107); CREATININE 1.03 mg/dL (0.55-1.02); POTASSIUM 4.1 mmol/L (3.5-5.1); SGOT/AST 16 IU/L (3-35); SGPT/ALT 16 U/L (12-78); SODIUM 142 mmol/L (136-145); TOTAL PROTEIN 7.6 gm/dL (6.4-8.2)
--- NOTE | 2020-03-31 02:48 | NUR ---
Pt turned and brief intact.No wounds noted at this time.B/L pedal edema plus two noted.Pt has Pt is unable to answer questions when asked.Pt has a constant cough but is not coughing anything up.
[2020-03-31 02:51] LABS: TROPONIN I 0.145 ng/ml (<0.045)
--- NOTE | 2020-03-31 03:00 | NUR ---
Pt still unable to void at this time.Pt stated she went and very scant amount of urine noted in brief.Pt turned are repostioned.
--- NOTE | 2020-03-31 03:01 | NUR ---
aware of no urine at this time.
--- NOTE | 2020-03-31 03:39 | NUR ---
Transfer of care to Nelson burch.
--- NOTE | 2020-03-31 07:15 | NUR ---
NURSE REPORT RECEIVED FROM KAREN FOR CONTINUATION OF CARE. PT IS AWAKE AND ALERT AND HAS NO VOICED COMPLAINTS. HER VITALS ARE STABLE AND WITHIN NORMAL LIMITS. AWAITING BED ASSIGNMENT FOR ADMISSION TO FLOOR.
[2020-03-31 08:01] LABS: BASO # 0.1 10*3/uL (0.0-0.1); BASO % 0.5 % (0.0-1.0); EOS # 0.2 10*3/uL (0.0-0.4); EOS % 1.2 % (1.0-4.0); HEMATOCRIT 35.4 % (37.0-47.0); LYMPH # 0.7 10*3/uL (1.3-4.4); LYMPH % 5.4 % (27.0-41.0); MEAN CELL VOLUME 89.2 fl (81.0-99.0); MEAN CORPUSCULAR HGB 28.2 pg (27.0-31.0); MEAN CORPUSCULAR HGB CONC 31.6 g/dl (33.0-37.0); MEAN PLATELET VOLUME 9.8 fl (9.6-12.3); MONO # 0.8 10*3/uL (0.1-1.0); MONO % 6.4 % (3.0-9.0); NEUT # 10.5 10*3/uL (2.3-7.9); NEUT % 86.2 % (47.0-73.0); PLATELET COUNT AUTOMATED 224 10*3/uL (130-400); RED BLOOD COUNT 3.97 10*6/uL (4.10-5.10); RED CELL DISTRI WIDTH 13.7 % (0-14.5); WHITE BLOOD COUNT 12.2 10*3/uL (4.8-10.8)
--- NOTE | 2020-03-31 08:15 | NUR ---
PT ASSISTED TO BEDPAN PRIOR SHIFT REPORTS PT HAS ZERO WEIGHT BEARING ABILITY WHEN THEY TRIED THIS EARLIER.
--- NOTE | 2020-03-31 08:22 | NUR ---
SECOND TROPONIN RETURNS AT 0.148, DR HERNÁNDEZ MADE AWARE. PRIOR RESULT WAS 0.145
[2020-03-31 08:27] LABS: BILIRUBIN NEGATIVE (NEGATIVE); BLOOD NEGATIVE (NEGATIVE); CLARITY CLEAR (CLEAR); COLOR YELLOW (YELLOW); GLUCOSE NEGATIVE (NEGATIVE); KETONE NEGATIVE (NEGATIVE); LEUKO ESTERASE NEGATIVE (NEGATIVE); NITRITE NEGATIVE (NEGATIVE); PH 6.5 (5.0-9.0); RBC 0-2 rbc/hpf (0-2); UROBILINOGEN 0.2 E.U./dl (0.2-1.0); WBC 0-2 wbc/hpf (0-5)
[2020-03-31 08:30] LABS: ACT PARTIAL THROMBO TIME 26.3 SECONDS (20.0-32.1)
[2020-03-31 08:31] LABS: ALBUMIN 3.1 gm/dl (3.1-4.5); CREATININE 1.1 mg/dL (0.55-1.02); FREE T4 1.18 ng/dl (0.76-1.46); POTASSIUM 3.9 mmol/L (3.5-5.1); TOTAL PROTEIN 7.6 gm/dL (6.4-8.2)
[2020-03-31 08:37] LABS: THYROID STIM HORMONE (HS) 1.56 uIU/ml (0.358-4.75)
--- NOTE | 2020-03-31 08:45 | NUR ---
PT NOW REQUESTS AND WAS GIVEN CALLBELL WITHIN REACH.
[2020-03-31 08:49] LABS: VITAMIN D, 25-HYDROXY 45.1 ng/mL (30-100)
--- NOTE | 2020-03-31 08:54 | NUR ---
SECOND EKG NOW COMPLETED, LATE, AND SHOWN TO DR HERNÁNDEZ WHO STATES THERE IS NO DIFFERENCE BETWEEN THE TWO EKGS. I DID REMIND DR HERNÁNDEZ ABOUT PT'S CONTINUED ELEVATED TROPONIN.
--- NOTE | 2020-03-31 09:30 | NUR ---
PT ASKS FOR CALLBELL AGAIN, REDIRECTED TO ITS POSITION/LOCATION.
--- NOTE | 2020-03-31 09:59 | NUR ---
PT'S DAUGHTER "TERENCE" CALLS AND PT DOES GIVE PERMISSION FOR ME TO SPEAK WITH HER. NO CHANGE IN CONDITION. LAST OF THREE EKGS DONE AND SHOWN TO DR HERNÁNDEZ WHO REPORTS NO CHANGE. VITALS STABLE AND WITHIN NORMAL LIMITS. PT EXPRESSES NO VOICED COMPLAINTS.
--- NOTE | 2020-03-31 10:01 | NUR ---
POX NOW 98% ON ROOM AIR, NO RESPIRATORY OR OTHER DISTRESS. PT TOILETED ON BEDPAN AGAIN. CLEANSED. AFEBRILE AFTER TEMP RECHECK NOW. FREQUENT COUGH REMAINS.
--- NOTE | 2020-03-31 11:36 | NUR ---
PT'S DAUGHTER TERENCE NOW CALLS AGAIN AND I DID TRANSFER THE CALL AND THEY DID SPEAK WITH EACH OTHER FOR QAN EXTENDED TIME. PT URINATES AGAIN A SMALL AMOUNT INTO BEDPAN. HER VITALS REMAIN STABLE AND WITHIN NORMAL LIMITS. SHE REMAINS AFEBRILE. NO CHANGE IN CONDITION.
--- NOTE | 2020-03-31 12:27 | NUR ---
DIETARY ORDER INPUT FOR ALL MEALS, BUT LUNCH HAS NOT YET ARRIVED. CONSULT CALL PLACED TO DR EH CHI FOR ELEVATED TROPONIN'S. ATTEMPTED THREE TIMES TO CALL A CONSULT TO DR HARRIS AT [phone] AND THERE WAS NO ANSWER EACH OF THE FIRST TWO ATTEMPTS AND I AM CURRENTLY ON HOLD WAITING FOR THIRD ATTEMPT.
--- NOTE | 2020-03-31 12:32 | NUR ---
ANSWERING SERVICE FOR DR BERMUDEZ NOW ANSWERS AND STATES THEY WILL PROVIDE THE DR WILL THE CONSULT.
[2020-03-31 12:58] LABS: ABG BASE EXCESS 1.7 mmol/L (-2.0-2.0); ARTERIAL BLOOD GAS PH 7.411 (7.35-7.45)
--- NOTE | 2020-03-31 13:12 | NUR ---
VITALS STABLE AND IN NORMAL LIMITS. ALTHOUGH POX REMAINS 96% TO 98% ON ROOM AIR, PT'S RESP RATE IS 18-20 AND ALTHOUGH SHE DENIES FEELING SOB I DID STARTED NC O2 AT 3L BASED ON THE ABG RESULT PO2 OF 60 THAT JUST RETURNS IN AN EFFORT TO MAKE HER MORE COMFORTABLE. PT RESTING WITH EYES CLOSED, DENIES ANY NEEDS FOR TOILETING OR OTHER COMPLAINTS.
--- NOTE | 2020-03-31 13:14 | NUR ---
PER CONSULT ORDFER, I DID NOW MAKE DR FRIEDMAN AWARE OF PT'S HYPOXEMIA PER DR MONTERO ORDER.
--- NOTE | 2020-03-31 14:05 | NUR ---
FIDEL [employer] NOW CALLS WITH NEW ORDERS FOR URINE TESTING LEGIONELLA AND STREP PNEUMONIA ANTIGENS. ECHOCARDIOGRAM AT BEDSIDE. A 4TH EKG NOW PORDERED WELL A NEW ROUND OF MEDS. ALL PENDING.
--- NOTE | 2020-03-31 14:30 | NUR ---
PT ACCIDENTLY PULLS OUT HER IV SITE.
--- NOTE | 2020-03-31 14:32 | NUR ---
ECHO REMAINS AT BEDSIDE. EKG, DECADRON MED AND A NEW IV TO REPLACE THE ONE PT ACCIDENTLY PULLED OUT ALL PENDING.
[2020-03-31 14:52] LABS: ABG BASE EXCESS 0.4 mmol/L (-2.0-2.0); ARTERIAL BLOOD GAS PH 7.389 (7.35-7.45)
--- NOTE | 2020-03-31 15:09 | NUR ---
PT'S 4TH EKG DONE, SHOWS "MINIMAL ST DEPRESSION" ON COMPUTER READ WHICH WAS NOT PRESENT ON PRIOR THREE. UNABLE TO LOCATE DR HERNÁNDEZ. I DID CALL DR JEFFERS AND INFORMED HIM NOW.
--- NOTE | 2020-03-31 15:10 | NUR ---
NURSE REPORT TO MERT MAGANA, FOR CONTINUATION OF CARE.
--- NOTE | 2020-03-31 16:16 | NUR ---
PT USED BEDPAN WHILE THIS RN WAS IN ROOM. PT STILL COUGHING. DR ARANA CALLED TO CHECK ON PT. SHE IS AWARE PT IS STILL COUGHING
--- NOTE | 2020-03-31 17:00 | NUR ---
The assessment has been completed. JONN BAIG Time: 1700 A 84 year old FEMALE admitted to under services of ERMIAS TIDWELL DO. Pt. arrived via ambulance from ER. Chief complaint: INCREASING SOB-POSSIBLY EXPOSED TO COVID-19 FROM WORKER AT [facility]. JONN BAIG
[2020-03-31] MEDS ORDERED: OMEPRAZOLE40 MG PO (18:12)
[2020-03-31] MEDS ORDERED: Ipratropium Brom3 ML INH (18:12)
[2020-03-31] MEDS ORDERED: CYPROHEPTADINE H4 M1 PO (18:12)
--- NOTE | 2020-03-31 20:06 | NUR ---
DR. JONES AWARE OF MED REC BEING UP TO DATE.
[2020-04-01] VITALS: BP 117/58
[2020-04-01 07:10] LABS: HEMATOCRIT 34.7 % (37.0-47.0); MEAN CELL VOLUME 89.9 fl (81.0-99.0); MEAN CORPUSCULAR HGB CONC 31.1 g/dl (33.0-37.0); MEAN PLATELET VOLUME 10.3 fl (9.6-12.3); PLATELET COUNT AUTOMATED 193 10*3/uL (130-400); RED BLOOD COUNT 3.86 10*6/uL (4.10-5.10); RED CELL DISTRI WIDTH 13.9 % (0-14.5); WHITE BLOOD COUNT 6.6 10*3/uL (4.8-10.8)
[2020-04-01 07:27] LABS: ALKALINE PHOSPHATASE 93 U/L (45-117); BUN 20 mg/dl (7-24); CHLORIDE 109 mmol/L (98-107); CREATININE 0.88 mg/dL (0.55-1.02); POTASSIUM 4.2 mmol/L (3.5-5.1); SGOT/AST 26 IU/L (3-35); SGPT/ALT 19 U/L (12-78); SODIUM 140 mmol/L (136-145); TOTAL PROTEIN 7.6 gm/dL (6.4-8.2)
[2020-04-01 08:00] VITALS: BP 1132/91
[2020-04-01 08:11] LABS: TOTAL CELLS COUNTED 100 #CELLS
[2020-04-01 08:12] LABS: PLATELET SUFFICIENCY NORMAL (NORMAL)
--- NOTE | 2020-04-01 09:30 | NUR ---
TYRON spoke to pt's daughter/DPOA by phone. Patient lives at [facility]. Physician: Dr Fisher Patient's level of ADLs: MAX ASSIST Does patient want to access PORTAL?: No Discharge plan: Ptis LTC at [facility]. Pt's daughter/DPOAHC confirms that she wants pt to return there upon [facility] discharge. NOMI CARVER
[2020-04-01 12:00] VITALS: BP 125/64
[2020-04-01 14:37] LABS: ABG BASE EXCESS 1.3 mmol/L (-2.0-2.0); ARTERIAL BLOOD GAS PH 7.407 (7.35-7.45)
[2020-04-01 16:00] VITALS: BP 132/58
--- NOTE | 2020-04-01 18:08 | NUR ---
ORDER RECIEVED FOR CVA PLACEMENT TONIGHT.NOTIFIED DR CHIANG OF DR FRIEDMAN'S ORDER.
--- NOTE | 2020-04-01 19:00 | NUR ---
ASSUMED CARE OF PATIENT. ASSESSMENT IS COMPLETE. NO C/O OR S/S OF DISTRESS NOTED. VITAL SIGNS OBTAINED. INCONTINENCE CARE PROVIDED. BED IS LOW, LOCKED, ALARMED, AND CALL LIGHT IS WITHIN REACH. WILL CONTINUE TO MONITOR, SEE INTERVENTIONS.
[2020-04-01 20:00] VITALS: BP 127/59
[2020-04-02] VITALS: BP 128/57
--- NOTE | 2020-04-02 | NUR ---
PATIENT APPEARS TO BE SLEEPING WITH EASY AND REGULAR RESPERS ON 2L O2 VIA NC. CALL LIGHT IS WITHIN REACH.
--- NOTE | 2020-04-02 05:10 | NUR ---
CHART CHECK COMPLETE.
[2020-04-02 06:45] LABS: HEMATOCRIT 33.4 % (37.0-47.0); LYMPH # 0.5 10*3/uL (1.3-4.4); LYMPH % 8.7 % (27.0-41.0); MEAN CELL VOLUME 89.8 fl (81.0-99.0); MEAN CORPUSCULAR HGB 28.5 pg (27.0-31.0); MEAN CORPUSCULAR HGB CONC 31.7 g/dl (33.0-37.0); MEAN PLATELET VOLUME 10.2 fl (9.6-12.3); MONO # 0.7 10*3/uL (0.1-1.0); MONO % 11.3 % (3.0-9.0); NEUT # 4.6 10*3/uL (2.3-7.9); NEUT % 79.7 % (47.0-73.0); PLATELET COUNT AUTOMATED 199 10*3/uL (130-400); RED BLOOD COUNT 3.72 10*6/uL (4.10-5.10); RED CELL DISTRI WIDTH 13.8 % (0-14.5); WHITE BLOOD COUNT 5.7 10*3/uL (4.8-10.8)
[2020-04-02 07:20] LABS: ALBUMIN 2.7 gm/dl (3.1-4.5); BUN 24 mg/dl (7-24); CHLORIDE 113 mmol/L (98-107); CREATININE 0.85 mg/dL (0.55-1.02); POTASSIUM 4.1 mmol/L (3.5-5.1); SGOT/AST 21 IU/L (3-35); SGPT/ALT 21 U/L (12-78); SODIUM 143 mmol/L (136-145)
[2020-04-02 07:21] LABS: ALKALINE PHOSPHATASE 77 U/L (45-117); TOTAL PROTEIN 6.9 gm/dL (6.4-8.2)
[2020-04-02 08:00] VITALS: BP 140/72
[2020-04-02 12:00] VITALS: BP 141/75
--- NOTE | 2020-04-02 13:30 | NUR ---
DR YORK ROUNDED AND SEEN PT.NO NEW ORDERS.
[2020-04-02 16:00] VITALS: BP 143/68
--- NOTE | 2020-04-02 16:04 | NUR ---
NOTIFIED DR FRIEDMAN OF COVID NEGATIVE RESULTS.DISCUSSED DISCONTINUATION OF ISOLATION AND PER DR FRIEDMAN HE PREFERRED TO LEAVE PT IN ISOLATION AND TO RETEST THIS PT IN 5 DAYS, DUE TO EXPOSURE TIME. HE ASKED THAT I PASS HIS CONCERNS ON TO ID.HOWEVER HE WOULD FOLLOW THERE RECCOMMENDATIONS REGARDING ISOLATION.
--- NOTE | 2020-04-02 16:14 | NUR ---
CALL PLACED TO ID ANSWERING SERVICE REGARDING ISOLATION FOLLOWING A NEGATIVE COVID. DORIE CHI CNP. COVERING ID THIS WEEKEND, RETURNED MY CALL AND AFTER MOST RECENT READING CT REPORT BACK.ADVISED DORIE CHI OF DR FRIEDMAN'S CONCERNS REGARDING POSSIBILITY OF POSITIVE RESULTS LATER DUE TO EXPOSURE TIME AND RETESTING PT IN 5 DAYS. ORDER RECIEVED TO DISCONTINUE ISOLATION.
--- NOTE | 2020-04-02 19:39 | NUR ---
24 HR CHART CHECK COMPLETE.
[2020-04-02 20:00] VITALS: BP 120/62
[2020-04-03] VITALS: BP 121/72
[2020-04-03 08:00] VITALS: BP 138/64
--- NOTE | 2020-04-03 08:16 | NUR ---
Patient comes in from [facility]. Faxed clinical updates and notified patient was Covid negative. Patient is ok to return when medically stable for discharge.
--- NOTE | 2020-04-03 09:20 | NUR ---
PATIENT SLEEPING. AROUSES EASILY. PT AKHIOK. PT ALERT TO SELF AND CARE. MINIMAL VERBAL RESPONSE DURING ASSESSMENT. O2 IN USE VIA 2LNC. POX REMAINS 98-99% VIA 2LNC. LUNGS DIMINISHED WITH I/E WHEEZES. HARSH, HACKY COUGH DURING ASSESSMENT. VSS. WILL CONTINUE TO MONITOR. BREAKFAST TRAY SET UP FOR PATIENT. BED ALARM MAINTAINED FOR SAFETY. CALL LIGHT WITHIN REACH.
--- NOTE | 2020-04-03 09:45 | NUR ---
IN TO SEE PATIENT.
--- NOTE | 2020-04-03 10:00 | NUR ---
UPDATED ON PATIENT'S CONDITION AND PLAN OF CARE.
[2020-04-03 12:00] VITALS: BP 131/73
--- NOTE | 2020-04-03 13:13 | NUR ---
PT IS SHELTER CARE AT [facility] AND WILL RETURN WHEN MEDICALLY STABLE.
[2020-04-03 16:00] VITALS: BP 136/81
--- NOTE | 2020-04-03 17:20 | NUR ---
PT MEDICATED WITH PO TYLENOL PER PRN ORDER FOR C/O NECK PAIN/DISCOMFORT. UNABLE TO RATE PAIN ON A SCALE. WILL MONITOR EFFECTIVENESS. PT REPOSITIONED FOR COMFORT. CALL LIGHT WITHIN REACH.
[2020-04-03 21:00] VITALS: BP 130/65
[2020-04-04] VITALS: BP 126/58
[2020-04-04 12:00] VITALS: BP 131/67
--- NOTE | 2020-04-04 12:55 | NUR ---
PT IS ALF CARE AT [facility] AND CAN RETURN WHEN MEDICALLY STABLE. COVID IS NEGATIVE.
[2020-04-04] MEDS ORDERED: ZITHROMAX250 MG PO (13:21)
[2020-04-04] MEDS ORDERED: PREDNISONE10 MG PO (13:22)
--- NOTE | 2020-04-04 14:18 | NUR ---
Patient is discharged to return to [facility], discharge orders faxed. Patient will be going via [facility] at 4:45 PM. receptionist clerk, nursing and patients daughter all notified.
[2020-04-04 16:00] VITALS: BP 141/62
--- NOTE | 2020-04-04 16:57 | NUR ---
HEPLOCK REMOVED FROM LEFT FOOT AND RIGHT ARM.
--- NOTE | 2020-04-04 17:00 | NUR ---
ATTEMPTED TO CALL REPORT SAI LEAVITT WITH NO ANSWER.
--- NOTE | 2020-04-04 17:01 | NUR ---
PT DISCHARGED BACK TO [facility] AT THIS TIME VIA [facility].
== END 2020-04-04 17:01 | disposition other institution (70) | DRG 193 ==
LOC: ED 01:55 → 4E 06:14 → EDHOLD 06:14 → 4E 16:53
PROVIDERS: Emergency Medicine; Internal Medicine; Internal Medicine Critical Care Medicine; ADMIT Student in an Organized Health Care Education/Training Program
DX: J15.9 Unspecified bacterial pneumonia (principal); J96.01 Acute respiratory failure with hypoxia; E44.0 Moderate protein-calorie malnutrition; I24.8 Other forms of acute ischemic heart disease; J44.0 Chronic obstructive pulmonary disease with (acute) lower respiratory infection; J44.1 Chronic obstructive pulmonary disease with (acute) exacerbation; N17.9 Acute kidney failure, unspecified; D64.9 Anemia, unspecified; E87.8 Other disorders of electrolyte and fluid balance, not elsewhere classified; G30.9 Alzheimer's disease, unspecified; M81.0 Age-related osteoporosis without current pathological fracture; I12.9 Hypertensive chronic kidney disease with stage 1 through stage 4 chronic kidney disease, or unspecified chronic kidney disease; N18.3 Chronic kidney disease, stage 3 (moderate); E83.41 Hypermagnesemia; F32.9 Major depressive disorder, single episode, unspecified; R27.0 Ataxia, unspecified; Z20.828 Contact with and (suspected) exposure to other viral communicable diseases; R73.9 Hyperglycemia, unspecified; E66.3 Overweight; E83.39 Other disorders of phosphorus metabolism; M19.90 Unspecified osteoarthritis, unspecified site; F02.80 Dementia in other diseases classified elsewhere, unspecified severity, without behavioral disturbance, psychotic disturbance, mood disturbance, and anxiety; R59.0 Localized enlarged lymph nodes; I08.0 Rheumatic disorders of both mitral and aortic valves; M48.55XS Collapsed vertebra, not elsewhere classified, thoracolumbar region, sequela of fracture; Z87.01 Personal history of pneumonia (recurrent); Z88.0 Allergy status to penicillin; Z91.018 Allergy to other foods; Z88.8 Allergy status to other drugs, medicaments and biological substances; Z86.73 Personal history of transient ischemic attack (TIA), and cerebral infarction without residual deficits; Z91.81 History of falling; Z90.710 Acquired absence of both cervix and uterus; Z80.8 Family history of malignant neoplasm of other organs or systems; Z79.899 Other long term (current) drug therapy; Z79.82 Long term (current) use of aspirin; Z68.21 Body mass index [BMI] 21.0-21.9, adult

== ENCOUNTER 2020-04-17 14:42 | Observation (INO) | payer MEDICARE ==
[~2020-04-17] VITALS: Ht 172.7 cm; Wt 59.5 kg
[~2020-04-17 14:42] MED LIST changes: +CYPROHEPTADINE H4 M1 PO; +Ipratropium Brom3 ML INH; +OMEPRAZOLE40 MG PO; +ZITHROMAX250 MG PO
[2020-04-17 14:47] VITALS: BP 101/46
[2020-04-17 14:52] VITALS: BP 101/46
[2020-04-17 15:16] VITALS: BP 105/48
--- NOTE | 2020-04-17 15:18 | NUR ---
PT RESTING RADHAIELTG, NS INFUSING WIDE OPEN FROM EMS PT REMAINS LETHARIC, WILL OPEN HER EYES AND RESPONED TO VERBAL STIMULI.
[2020-04-17 15:20] LABS: HEMATOCRIT 33.5 % (37.0-47.0); MEAN CORPUSCULAR HGB 28.6 pg (27.0-31.0); MEAN PLATELET VOLUME 10.9 fl (9.6-12.3); PLATELET COUNT AUTOMATED 204 10*3/uL (130-400); RED BLOOD COUNT 3.64 10*6/uL (4.10-5.10); RED CELL DISTRI WIDTH 14.4 % (0-14.5); WHITE BLOOD COUNT 15.7 10*3/uL (4.8-10.8)
[2020-04-17 15:35] VITALS: BP 98/49
[2020-04-17 15:35] LABS: ALBUMIN 2.3 gm/dl (3.1-4.5); CREATININE 1.7 mg/dL (0.55-1.02); POTASSIUM 4.4 mmol/L (3.5-5.1); TOTAL PROTEIN 6.6 gm/dL (6.4-8.2)
--- NOTE | 2020-04-17 15:35 | NUR ---
SPOKE WITH THE PT DAUGHTER, SHE WAS UPDATED ON THE PT STATUS, PER PT PERMISSION.
[2020-04-17 15:37] LABS: ACT PARTIAL THROMBO TIME 22.5 SECONDS (20.0-32.1)
[2020-04-17 15:40] LABS: TROPONIN I 0.063 ng/ml (<0.045)
[2020-04-17 15:56] LABS: TOTAL CELLS COUNTED 100 #CELLS
[2020-04-17 15:57] LABS: PLATELET SUFFICIENCY NORMAL (NORMAL)
[2020-04-17 19:17] LABS: BILIRUBIN NEGATIVE (NEGATIVE); BLOOD TRACE-INTACT (NEGATIVE); CLARITY CLEAR (CLEAR); COLOR YELLOW (YELLOW); GLUCOSE NEGATIVE (NEGATIVE); KETONE NEGATIVE (NEGATIVE); LEUKO ESTERASE 1+ (NEGATIVE); NITRITE NEGATIVE (NEGATIVE); PH 5.5 (5.0-9.0); SPECIFIC GRAVITY 1.025 (1.005-1.030); UROBILINOGEN 0.2 E.U./dl (0.2-1.0)
[2020-04-17 19:20] VITALS: BP 97/53
[2020-04-17 19:20] LABS: BACTERIA 1+
--- NOTE | 2020-04-17 19:20 | NUR ---
BRUISING NOTED TO PATIENT LEFT HIP, LFA, RIGHT ELBOW, RIGHT HAND, AND LEFT WRIST AT THIS TIME. NO OPEN AREAS NOTED TO ANY BRUISES. SEE WOUND ASSESSMNET FOR FURTHER WOUNDS.
--- NOTE | 2020-04-17 20:10 | NUR ---
PATIENT TRANSPORTED TO AT THIS TIME. ANOTHER WOUND IS NOTED TO LEFT LATERAL 5TH DIGIT AT THIS TIME. NO PICTURE TAKEN, PER RN JAC SHE WOULD TAKE PICTURE ON THE FLOOR.
[2020-04-17 20:15] VITALS: BP 134/90
--- NOTE | 2020-04-17 20:15 | NUR ---
A 84, admitted to , under the services of ERMIAS Chavez DO with a diagnosis of METABOLIC ENCEPHALOPATHY, DEHYDRATION. Chief complaint is LOW BLOOD PRESSURE. Patient arrived via BED from ER. Monitor applied. Initial assessment completed. Vital signs taken and recorded. ERMIAS CHAVEZ DO notified of admission to the unit. Orders received. See assessment for past medical history, medications and allergies. Patient and/or family oriented to unit. [facility] visitation policy reviewed. Clothing/patient valuable form completed. JAC SOMMER
--- NOTE | 2020-04-17 21:00 | NUR ---
DR. CHAND NOTIFIED PT LOST IV SITE. UNABLE TO GET IV SITE AT THIS TIME. PT IS YELLING AND TELLING STAFF TO "STOP" WILL TRY AGAIN LATER
--- NOTE | 2020-04-17 22:12 | NUR ---
DR. CHAND NOTIFIED OF CRITICAL TROPONIN OF 0.060
--- NOTE | 2020-04-17 23:00 | NUR ---
DR. CHAND NOTIFIED OF NEED FOR WOUND ORDERS. ALSO NOTIFIED OF UP TO DATE MEDICATIONS.
[2020-04-18] VITALS: BP 131/69
--- NOTE | 2020-04-18 | NUR ---
NEW IV STARTED BY MY IN RIGHT AC. IV FLUIDS GOING AGAIN AT THIS TIME. TOLERATING WELL. NO COMPLAINTS. CALL LIGHT IN REACH
--- NOTE | 2020-04-18 01:55 | NUR ---
24 HR chart check completed.
[2020-04-18 06:45] LABS: BASO % 0.2 % (0.0-1.0); EOS # 0.2 10*3/uL (0.0-0.4); EOS % 1.7 % (1.0-4.0); HEMATOCRIT 32.2 % (37.0-47.0); LYMPH # 1.2 10*3/uL (1.3-4.4); LYMPH % 10.4 % (27.0-41.0); MEAN CELL VOLUME 93.3 fl (81.0-99.0); MEAN CORPUSCULAR HGB CONC 31.1 g/dl (33.0-37.0); MEAN PLATELET VOLUME 10.9 fl (9.6-12.3); MONO # 0.6 10*3/uL (0.1-1.0); MONO % 5.4 % (3.0-9.0); NEUT # 9.5 10*3/uL (2.3-7.9); PLATELET COUNT AUTOMATED 175 10*3/uL (130-400); RED BLOOD COUNT 3.45 10*6/uL (4.10-5.10); RED CELL DISTRI WIDTH 14.1 % (0-14.5); WHITE BLOOD COUNT 11.5 10*3/uL (4.8-10.8)
[2020-04-18 07:08] LABS: CHLORIDE 113 mmol/L (98-107); POTASSIUM 3.6 mmol/L (3.5-5.1); SODIUM 144 mmol/L (136-145)
[2020-04-18 07:09] LABS: BUN 43 mg/dl (7-24); CREATININE 0.99 mg/dL (0.55-1.02)
--- NOTE | 2020-04-18 10:25 | NUR ---
PODIATRY: AT BEDSIDE. CONSULT COMPLETE. CONTINUE TO MONITOR THE PT.
--- NOTE | 2020-04-18 10:52 | NUR ---
24HR CHART CHECK COMPLETE.
--- NOTE | 2020-04-18 11:22 | NUR ---
Patient comes in from [facility] where she is a emt intermediate resident. Patient is ok to return when medically stable. Contacted hospitalists office for Covid test
[2020-04-18 12:00] VITALS: BP 109/41
--- NOTE | 2020-04-18 14:05 | NUR ---
OT NOTE Occupational therapy order received and chart reviewed. Attempted to see patient this PM however patient was beginning to eat her lunch and under nursing care. Assisted patient with repositioning in bed. Will check back at a later date for completion of an OT eval. Thank you. Kenisha Benson, OTR/L
--- NOTE | 2020-04-18 14:20 | NUR ---
PHYSICAL THERAPY Chart reviewed attempted to see pt for evaluation however currently receiving nsg care for BLE/feet and then late lunch tray arrived. Will follow at a later date. Laura Garcia PT
--- NOTE | 2020-04-18 14:46 | NUR ---
WOUND CARE: APPLIED SUREPREP ORDERED AND WOVE DRAIN SPONGES BETWEEN TOES ORDERED. PT TOLERATED WELL. CONTINUE TO MONITOR THE PT.
[2020-04-18 16:00] VITALS: BP 122/51
--- NOTE | 2020-04-18 17:00 | NUR ---
MEDICATED WITH NORCO FOR COMPLAINTS OF PAIN IN BILATERAL FEET. ENCOURAFED TO MOVE FEET AND ANKLES AROUND.
--- NOTE | 2020-04-18 18:37 | NUR ---
VOICES NORCO WAS EFFECTIVE FOR PAIN
--- NOTE | 2020-04-18 19:10 | NUR ---
REPORT RECEIVED. PT LYING IN BED. UPON ASSESSMENT, PT IV RED AND PAINFUL PER PT. IV DISCONTINUED. DR. CHAND NOTIFIED OF LOSS OF IV ACCESS. POSSIBLE NEED FOR CENTRAL LINE.
[2020-04-18 20:00] VITALS: BP 127/51
--- NOTE | 2020-04-18 22:00 | NUR ---
PT LYING IN BED AT THIS TIME. PT REFUSING MEDICATIONS AT THIS TIME.
[2020-04-19] VITALS: BP 137/53
--- NOTE | 2020-04-19 01:15 | NUR ---
PT ASSISTED TO USE BEDPAN AT THIS TIME. NO COMPLAINTS VOICED. CALL LIGHT IN REACH
--- NOTE | 2020-04-19 03:00 | NUR ---
PT ASLEEP AT THIS TIME
--- NOTE | 2020-04-19 05:16 | NUR ---
Upon discharge recommend patient to follow up for wound care in outpatient setting continue current wound care orders at discharging facility.
--- NOTE | 2020-04-19 05:50 | NUR ---
NEW #22 GAUGE IV STARTED IN THE LEFT AC BY IZZY PAINTING AT THIS TIME. ROCEPHIN GIVEN AT NON SCHEDULED TIME PER DR CHAND SINCE PT HAD NO IV SITE LAST NIGHT. NO OTHER ORDERS AT THIS TIME
[2020-04-19 06:08] LABS: CHLORIDE 113 mmol/L (98-107); CREATININE 0.73 mg/dL (0.55-1.02); POTASSIUM 3.8 mmol/L (3.5-5.1); SODIUM 142 mmol/L (136-145)
[2020-04-19 06:11] LABS: BUN 26 mg/dl (7-24)
--- NOTE | 2020-04-19 07:44 | NUR ---
24HR CHART CHECK COMPLETE.
[2020-04-19 08:00] VITALS: BP 132/68
[2020-04-19 08:55] LABS: BASO % 0.4 % (0.0-1.0); EOS # 0.3 10*3/uL (0.0-0.4); EOS % 3.5 % (1.0-4.0); HEMATOCRIT 31.8 % (37.0-47.0); LYMPH # 1.6 10*3/uL (1.3-4.4); LYMPH % 20.5 % (27.0-41.0); MEAN CORPUSCULAR HGB 28.9 pg (27.0-31.0); MEAN CORPUSCULAR HGB CONC 32.4 g/dl (33.0-37.0); MEAN PLATELET VOLUME 11.6 fl (9.6-12.3); MONO # 0.5 10*3/uL (0.1-1.0); MONO % 5.9 % (3.0-9.0); NEUT # 5.2 10*3/uL (2.3-7.9); NEUT % 68.8 % (47.0-73.0); PLATELET COUNT AUTOMATED 183 10*3/uL (130-400); RED BLOOD COUNT 3.56 10*6/uL (4.10-5.10); RED CELL DISTRI WIDTH 14.2 % (0-14.5); WHITE BLOOD COUNT 7.6 10*3/uL (4.8-10.8)
[2020-04-19 08:56] LABS: MEAN CELL VOLUME 89.3 fl (81.0-99.0)
--- NOTE | 2020-04-19 09:01 | NUR ---
OT NOTE Occupational therapy order received. Attempted to see patient this AM however she was under nursing care and being set up for breakfast. Will check back at a later date. Thank you. Kenisha Benson, OTR/L
--- NOTE | 2020-04-19 09:29 | NUR ---
PHYSICAL THERAPY Attempted to see pt at the bedside for evaluation unavailable as nsg in room setting pt up to eat breakfast, will follow at a later time. Laura Garcia PT
[2020-04-19] MEDS ORDERED: CEPHALEXIN500 M1 PO (11:51)
--- NOTE | 2020-04-19 12:18 | NUR ---
Patient is discharged to return to [facility] via [place] at 12:30 pm. NH, deck steward, nursing and daughter all notified. DC orders and summary faxed.
--- NOTE | 2020-04-19 12:31 | NUR ---
DISCHARGE: IV REMOVED INTACT WITHOUT COMPLICATIONS. PT NONMONITORED. ALL BELONGINGS GATHERED AND SENT WITH THE PT. EMS HERE TO TAKE PT TO [facility]. PT DISCHARGED.
--- NOTE | 2020-04-19 12:41 | NUR ---
NURSE TO NURSE: CALLED NURSE TO NURSE TO MERT PINEDA AT [facility]. ALL QUESTIONS ANSWERED AND CALL BACK NUMBER PROVIDED. INFORMED THAT EMS WAS HERE TO TAKE PT. PT DISCHARGED.
== END 2020-04-19 12:30 ==
LOC: ED 14:42 → 4E 18:18 → EDHOLD 18:18 → 4E 19:57
PROVIDERS: Emergency Medicine; Hospitalist; Student in an Organized Health Care Education/Training Program; ADMIT Student in an Organized Health Care Education/Training Program
DX: Z03.818 Encounter for observation for suspected exposure to other biological agents ruled out (principal); E86.0 Dehydration; N39.0 Urinary tract infection, site not specified; G93.41 Metabolic encephalopathy; N17.0 Acute kidney failure with tubular necrosis; E43 Unspecified severe protein-calorie malnutrition; R31.9 Hematuria, unspecified; F32.9 Major depressive disorder, single episode, unspecified; R19.7 Diarrhea, unspecified; M81.0 Age-related osteoporosis without current pathological fracture; D64.9 Anemia, unspecified

== ENCOUNTER 2020-07-15 19:36 | Observation (INO) | payer MEDICARE ==
[~2020-07-15] VITALS: Ht 172.7 cm
[~2020-07-15 19:36] MED LIST changes: -ACETAMINOPHEN325 M3 PO; +CEPHALEXIN500 M1 PO; +PAIN RELIEVER325 MG PO
[2020-07-15 19:38] VITALS: BP 134/79
[2020-07-15 19:54] LABS: BASO # 0.1 10*3/uL (0.0-0.1); EOS # 0.5 10*3/uL (0.0-0.4); EOS % 7.2 % (1.0-4.0); HEMATOCRIT 38.1 % (37.0-47.0); LYMPH # 1.1 10*3/uL (1.3-4.4); LYMPH % 16.7 % (27.0-41.0); MEAN CELL VOLUME 91.6 fl (81.0-99.0); MEAN CORPUSCULAR HGB 27.9 pg (27.0-31.0); MEAN CORPUSCULAR HGB CONC 30.4 g/dl (33.0-37.0); MEAN PLATELET VOLUME 10.2 fl (9.6-12.3); MONO # 0.5 10*3/uL (0.1-1.0); MONO % 7.4 % (3.0-9.0); NEUT # 4.6 10*3/uL (2.3-7.9); NEUT % 67.4 % (47.0-73.0); PLATELET COUNT AUTOMATED 232 10*3/uL (130-400); RED BLOOD COUNT 4.16 10*6/uL (4.10-5.10); RED CELL DISTRI WIDTH 13.2 % (0-14.5); WHITE BLOOD COUNT 6.8 10*3/uL (4.8-10.8)
[2020-07-15 20:23] LABS: ALBUMIN 3.5 gm/dl (3.1-4.5); CREATININE 1.44 mg/dL (0.55-1.02); POTASSIUM 4.3 mmol/L (3.5-5.1); TOTAL PROTEIN 7.9 gm/dL (6.4-8.2)
[2020-07-15 20:25] LABS: TROPONIN I 0.154 ng/ml (<0.045)
[2020-07-15 20:36] VITALS: BP 156/70
[2020-07-15 23:05] VITALS: BP 151/65
[2020-07-16 06:51] LABS: BASO # 0.1 10*3/uL (0.0-0.1); BASO % 1.5 % (0.0-1.0); EOS # 0.5 10*3/uL (0.0-0.4); EOS % 10.1 % (1.0-4.0); HEMATOCRIT 33.9 % (37.0-47.0); LYMPH # 0.9 10*3/uL (1.3-4.4); LYMPH % 16.9 % (27.0-41.0); MEAN CELL VOLUME 89.7 fl (81.0-99.0); MEAN CORPUSCULAR HGB 27.8 pg (27.0-31.0); MEAN PLATELET VOLUME 10.1 fl (9.6-12.3); MONO # 0.4 10*3/uL (0.1-1.0); MONO % 7.5 % (3.0-9.0); NEUT # 3.4 10*3/uL (2.3-7.9); NEUT % 63.8 % (47.0-73.0); PLATELET COUNT AUTOMATED 202 10*3/uL (130-400); RED BLOOD COUNT 3.78 10*6/uL (4.10-5.10); WHITE BLOOD COUNT 5.3 10*3/uL (4.8-10.8)
[2020-07-16 07:28] LABS: CHLORIDE 111 mmol/L (98-107); POTASSIUM 4.1 mmol/L (3.5-5.1); SODIUM 142 mmol/L (136-145)
[2020-07-16 07:38] LABS: BUN 30 mg/dl (7-24); CREATININE 0.99 mg/dL (0.55-1.02)
[2020-07-16 12:00] VITALS: BP 160/74
[2020-07-16] MEDS ORDERED: VALTREX1000 MG PO (14:36)
== END 2020-07-16 15:23 | disposition other institution (70) ==
LOC: ED 19:36 → EDHOLD 21:22 → 4E 22:56
PROVIDERS: Internal Medicine; ADMIT Emergency Medicine; ATTEND Emergency Medicine
DX: R07.89 Other chest pain (principal); B02.9 Zoster without complications; R77.8 Other specified abnormalities of plasma proteins; N17.0 Acute kidney failure with tubular necrosis; E87.8 Other disorders of electrolyte and fluid balance, not elsewhere classified; E83.41 Hypermagnesemia; I12.9 Hypertensive chronic kidney disease with stage 1 through stage 4 chronic kidney disease, or unspecified chronic kidney disease; N18.30 Chronic kidney disease, stage 3 unspecified; J44.9 Chronic obstructive pulmonary disease, unspecified; G30.9 Alzheimer's disease, unspecified; D64.9 Anemia, unspecified

== ENCOUNTER 2020-08-08 22:43 | Inpatient (IN) | payer MEDICARE ==
[~2020-08-08] VITALS: Ht 162.5 cm; Wt 68.9 kg
[~2020-08-08 22:43] MED LIST changes: +VALTREX1000 MG PO
[2020-08-08 22:45] VITALS: BP 166/73
--- NOTE | 2020-08-08 23:04 | NUR ---
PT HAD EPISODE LIGHT BROWN EMESIS.PT MEDICATED PER EMAR WITH ZOFRAN IVP.
[2020-08-08 23:25] LABS: HEMATOCRIT 36.5 % (37.0-47.0); MEAN CELL VOLUME 90.8 fl (81.0-99.0); MEAN CORPUSCULAR HGB 28.1 pg (27.0-31.0); MEAN PLATELET VOLUME 10.4 fl (9.6-12.3); PLATELET COUNT AUTOMATED 252 10*3/uL (130-400); RED BLOOD COUNT 4.02 10*6/uL (4.10-5.10); RED CELL DISTRI WIDTH 12.9 % (0-14.5); WHITE BLOOD COUNT 9.6 10*3/uL (4.8-10.8)
[2020-08-08] MEDS ORDERED: NORCO 5-325 TA1 EACH PO (23:39)
[2020-08-08 23:41] LABS: ACT PARTIAL THROMBO TIME 22.1 SECONDS (20.0-32.1)
[2020-08-08 23:48] LABS: ALBUMIN 3.4 gm/dl (3.1-4.5); CREATININE 1.42 mg/dL (0.55-1.02); POTASSIUM 3.9 mmol/L (3.5-5.1); TOTAL PROTEIN 8.2 gm/dL (6.4-8.2)
[2020-08-08 23:52] LABS: TROPONIN I 0.193 ng/ml (<0.045)
[2020-08-09] VITALS (37 sets, daily range): BP systolic 81–128; BP diastolic 42–71
[2020-08-09 00:01] LABS: TOTAL CELLS COUNTED 100 #CELLS
[2020-08-09 00:02] LABS: PLATELET SUFFICIENCY NORMAL (NORMAL)
--- NOTE | 2020-08-09 00:03 | NUR ---
PER MD CALVIN, URINE STRAIGHT CATH COMPLETED.URINE SPECIMEN OBTAINED,LABELED AND SENT TO LAB.PT BOTTOM ASSESSED FOR WOUNDS, SCANT AMOUNT OF BLOOD NOTED IN PT BRIEF.
[2020-08-09 00:26] LABS: BILIRUBIN Negative (Negative); BLOOD Negative (Negative); CLARITY Clear (Clear); COLOR Yellow (Yellow); GLUCOSE Negative (Negative); KETONE Negative (Negative); LEUKO ESTERASE Negative (Negative); NITRITE Negative (Negative); SPECIFIC GRAVITY 1.015 (1.001-1.030); UROBILINOGEN 0.2 E.U./dl (0.0-1.0)
[2020-08-09 00:43] LABS: BACTERIA TRACE; HYALINE CAST 0-2
--- NOTE | 2020-08-09 01:13 | NUR ---
PT MEDICATED WITH DILAUDID PER EMAR.VITALS REASSESSED.O2 SAT DECREASED TO 88%RA.PT PLACED ON 2L O2 VIA NC.O2 SAT INCREASED TO 92% ON 2L O2 VIA NC AT THIS TIME.WILL CONTINUE TO MONITOR.
[2020-08-09 01:14] LABS: LIPASE 44 U/L (73-393)
--- NOTE | 2020-08-09 01:47 | NUR ---
SPOKE WITH SAI DILLARD AND PROVIDED UPDATE ON PT AT THIS TIME, ADVISED THEM WE ARE AWAITING HER CT RESULTS OF ABDOMEN.THEY WILL RETURN CALL AT LATER TIME FOR UPDATE.
--- NOTE | 2020-08-09 02:28 | NUR ---
DR CALVIN AWAITING RETURN CALL FROM DR GALLEGO.
--- NOTE | 2020-08-09 03:05 | NUR ---
THIS RN UPDATED BY DR CALVIN, PT WILL BE GOING TO OR FOR SURGERY THIS AM PER DR DONOVAN AND MANAGER FLEET HAS BEEN NOTIFIED.
--- NOTE | 2020-08-09 03:18 | NUR ---
PT DAUGHTER, FÁTIMA, CONTACTED AND UPDATED ON PT CURRENT PLAN OF CARE.MD CALVIN ON PHONE SPEAKING WITH PT DAUGHTER.SOLO FROM [facility] UPDATED ALSO ON PT PLAN OF CARE.
--- NOTE | 2020-08-09 03:23 | NUR ---
POST OP PACKET PRINTED AND PLACED ON PT CHART.PRE OP QUESTIONAIRE AND EVAL COMPLETED BY THIS RN.
--- NOTE | 2020-08-09 04:24 | NUR ---
MERT PRICE FROM SURGERY AT BEDSIDE TO TAKE PT TO OR VIA STRETCHER AT THIS TIME.
--- NOTE | 2020-08-09 08:00 | NUR ---
A 84 YEAR OLD FEMALE PATIENT, admitted to ICCU, under the services of EULALIA Cazares DO with a diagnosis of S/P BOWEL RESECTION/SPLEENECTOMY/COLOSTOMY/LAP ZENOBIA. 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 Patient arrived via BED from SURGERY. Monitor applied. Initial assessment completed. Vital signs taken and recorded. See assessment for past medical history, medications and allergies. Patient and/or family oriented to unit. [id number] reviewed. Clothing/patient valuable form completed. ESTHELA SAUL
[2020-08-09 08:15] LABS: HEMATOCRIT 22.3 % (37.0-47.0); MEAN CORPUSCULAR HGB 27.5 pg (27.0-31.0); MEAN CORPUSCULAR HGB CONC 28.7 g/dl (33.0-37.0); MEAN PLATELET VOLUME 10.5 fl (9.6-12.3); RED BLOOD COUNT 2.33 10*6/uL (4.10-5.10); RED CELL DISTRI WIDTH 13.1 % (0-14.5); WHITE BLOOD COUNT 6.1 10*3/uL (4.8-10.8)
[2020-08-09 08:20] LABS: MEAN CELL VOLUME 95.7 fl (81.0-99.0); PLATELET COUNT AUTOMATED 145 10*3/uL (130-400)
--- NOTE | 2020-08-09 08:20 | NUR ---
DR SHAIKH AND DR CHAND IN ICU MADE AWARE OF CRITICAL HGB. ORDERS RECIEVED
[2020-08-09 08:30] LABS: ABG BASE EXCESS -11.5 mmol/L (-2.0-2.0); ARTERIAL BLOOD GAS PH 7.131 (7.35-7.45)
[2020-08-09 08:33] LABS: ALBUMIN 1.4 gm/dl (3.1-4.5); POTASSIUM 3.9 mmol/L (3.5-5.1)
[2020-08-09 08:40] LABS: CREATININE 1.07 mg/dL (0.55-1.02); TOTAL PROTEIN 3.5 gm/dL (6.4-8.2)
[2020-08-09 08:48] LABS: TOTAL CELLS COUNTED 100 #CELLS
[2020-08-09 08:49] LABS: PLATELET SUFFICIENCY NORMAL (NORMAL)
--- NOTE | 2020-08-09 08:56 | NUR ---
ATTEMPTED TO CALL BOTH DR FRIEDMAN'S OFFICE AND DR FRIEDMAN'S CELL PHONE WITH NO ANSWER. WILL REATTEMPT
[2020-08-09 09:06] LABS: VITAMIN D, 25-HYDROXY 58.1 ng/mL (30-100)
--- NOTE | 2020-08-09 09:48 | NUR ---
DR FRIEDMAN HERE SEEING PATIENT
--- NOTE | 2020-08-09 10:48 | NUR ---
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 Faxed clinical updates to facility for review. Patient is ok to return when medically stable for discharge.
[2020-08-09 11:56] LABS: ABG BASE EXCESS -15.2 mmol/L (-2.0-2.0); ARTERIAL BLOOD GAS PH 7.17 (7.35-7.45)
--- NOTE | 2020-08-09 11:58 | NUR ---
MEDICATION RECONCILLIATION COMPLETED WITH PAPERS SENT FROM [facility]
--- NOTE | 2020-08-09 14:25 | NUR ---
DR SHAIKH MADE AWARE OF ELEVATED LACTIC ACID LEVEL.
[2020-08-09 16:23] LABS: ARTERIAL BLOOD GAS PH 7.254 (7.35-7.45)
[2020-08-09 16:26] LABS: ABG BASE EXCESS -12.7 mmol/L (-2.0-2.0)
--- NOTE | 2020-08-09 16:34 | NUR ---
CALLED [facility] AND LEFT VOICEMAIL OF ABG RESULTS, RN AWARE.
[2020-08-09 17:20] LABS: HEMATOCRIT 38.2 % (37.0-47.0); MEAN CORPUSCULAR HGB 27.9 pg (27.0-31.0); MEAN CORPUSCULAR HGB CONC 31.7 g/dl (33.0-37.0); MEAN PLATELET VOLUME 10.1 fl (9.6-12.3); PLATELET COUNT AUTOMATED 122 10*3/uL (130-400); RED BLOOD COUNT 4.34 10*6/uL (4.10-5.10); RED CELL DISTRI WIDTH 14.4 % (0-14.5); WHITE BLOOD COUNT 4.9 10*3/uL (4.8-10.8)
[2020-08-09 17:42] LABS: BURR CELLS MODERATE; PLATELET SUFFICIENCY LOW (NORMAL); TOTAL CELLS COUNTED 100 #CELLS
--- NOTE | 2020-08-09 20:00 | NUR ---
INTUBATED AND SEDATED, DIPROVAN AT 25 MCG, LEVAPHED AT 16 M ETT SECURE AND SX FOR SCANT WHITE WOUND VAC TO ABD SURGICAL DRSG SECURE, ROXIE FOR SMALL SEROUS DRNG, COLOSTOMY WITH SCANT AMOUNT BR STOOLM NGT FOR THICK YELLOW/BROWN REFLUX, AVILA RIJ AND R ART SECURE AND ZERO CALIBRATED PER POLICY
--- NOTE | 2020-08-09 20:00 | NUR ---
Per ABG results and talking to , pt is to remain on current vent settings and get ABG's in the morning.
[2020-08-09 20:02] LABS: ARTERIAL BLOOD GAS PH 7.291 (7.35-7.45)
[2020-08-09 20:04] LABS: ABG BASE EXCESS -11.5 mmol/L (-2.0-2.0)
--- NOTE | 2020-08-09 23:03 | NUR ---
pt bp drop into the low 70's during the time spent reprogramming the iv pump for ds levo, recovering slowly
[2020-08-10] VITALS (93 sets, daily range): BP systolic 66–127; BP diastolic 38–68
--- NOTE | 2020-08-10 00:52 | NUR ---
bp has recovered with levo at 19 mc
--- NOTE | 2020-08-10 03:30 | NUR ---
REMAIN ON LEVA AT 19 MCG FRO MAP>65
--- NOTE | 2020-08-10 03:56 | NUR ---
NGT PATENT, BUT BARELY DRAINING, CXR REVIEWED AND NGT ADVANCED CXR ORDERED IN AM PER POLICY NGT NOW DRAINING FREELY
--- NOTE | 2020-08-10 04:50 | NUR ---
RESIDENT NOTIFIED OF ATRIAL TACHY, AND HR 120-130
--- NOTE | 2020-08-10 05:00 | NUR ---
LEVAPHED TO 20MC DIPROVAN TO 10MC
--- NOTE | 2020-08-10 05:22 | NUR ---
1 MG IV LOPRESSOR FOR HR 130 RESOLVED TO 80-90 QUICKLY EKG DONE SEE STRIPS
--- NOTE | 2020-08-10 06:11 | NUR ---
BP HAS RESOLVED WITH SLOWING OF HEART RATE LEVAPHED AT 15MCG DIPROVAN AT 25MCG
[2020-08-10 06:18] LABS: HEMATOCRIT 32.3 % (37.0-47.0); MEAN CELL VOLUME 86.1 fl (81.0-99.0); MEAN CORPUSCULAR HGB CONC 32.5 g/dl (33.0-37.0); MEAN PLATELET VOLUME 11.9 fl (9.6-12.3); PLATELET COUNT AUTOMATED 103 10*3/uL (130-400); RED BLOOD COUNT 3.75 10*6/uL (4.10-5.10); RED CELL DISTRI WIDTH 15.1 % (0-14.5); WHITE BLOOD COUNT 12.6 10*3/uL (4.8-10.8)
[2020-08-10 06:43] LABS: ALBUMIN 1.4 gm/dl (3.1-4.5); POTASSIUM 3.9 mmol/L (3.5-5.1)
[2020-08-10 06:45] LABS: CREATININE 1.25 mg/dL (0.55-1.02); TOTAL PROTEIN 3.8 gm/dL (6.4-8.2)
[2020-08-10 06:49] LABS: BURR CELLS FEW; PLATELET SUFFICIENCY LOW (NORMAL); TOTAL CELLS COUNTED 100 #CELLS
--- NOTE | 2020-08-10 07:00 | NUR ---
CONSULT CALLED TO ID, AWAITING CALL BACK
[2020-08-10 07:43] LABS: ARTERIAL BLOOD GAS PH 7.348 (7.35-7.45)
[2020-08-10 07:44] LABS: ABG BASE EXCESS -9.8 mmol/L (-2.0-2.0)
--- NOTE | 2020-08-10 10:14 | NUR ---
LOPRESSOR GIVEN FOR ELEVATED HEART RATE SUSTAINED 120'S..SEDATION VACATION IN PROGRESS
--- NOTE | 2020-08-10 17:48 | NUR ---
NOTIFIED DR. BINGHAM OF PATIENT HEART RATE.
--- NOTE | 2020-08-10 19:45 | NUR ---
Patient resting quietly with no s/s discomfort/distress. Vital signs stable. art line patent, blood pressure stable on 20mcg levophed. henriquez patent, wound vac draining minimal. drake draining moderate amount of bright red fluid. bilateral wrist restraints in place to prevent self extubation. heartrate af/at-110-120's. patient does open eyes with stimulation but does not follow commands or nod appropriately. within sight of this rn
[2020-08-11] VITALS (84 sets, daily range): BP systolic 84–133; BP diastolic 47–82
--- NOTE | 2020-08-11 02:45 | NUR ---
resting with no s/s discomfort/distress. Vital signs stable. Within sight of RN
[2020-08-11 06:06] LABS: HEMATOCRIT 28.1 % (37.0-47.0); MEAN CELL VOLUME 85.4 fl (81.0-99.0); MEAN CORPUSCULAR HGB 28.3 pg (27.0-31.0); MEAN CORPUSCULAR HGB CONC 33.1 g/dl (33.0-37.0); MEAN PLATELET VOLUME 11.7 fl (9.6-12.3); NUCLEATED RED BLOOD CELL 0.1 10*3/uL (0.0-0.0); NUCLEATED RED BLOOD CELL 0.3 % (0.0-0.0); PLATELET COUNT AUTOMATED 90 10*3/uL (130-400); RED BLOOD COUNT 3.29 10*6/uL (4.10-5.10); RED CELL DISTRI WIDTH 14.8 % (0-14.5); WHITE BLOOD COUNT 18.7 10*3/uL (4.8-10.8)
[2020-08-11 06:19] LABS: ALBUMIN 1.3 gm/dl (3.1-4.5); CREATININE 1.14 mg/dL (0.55-1.02); POTASSIUM 3.8 mmol/L (3.5-5.1); TOTAL PROTEIN 4.1 gm/dL (6.4-8.2)
[2020-08-11 07:13] LABS: ARTERIAL BLOOD GAS PH 7.376 (7.35-7.45)
[2020-08-11 07:16] LABS: ABG BASE EXCESS -9.8 mmol/L (-2.0-2.0)
[2020-08-11 07:21] LABS: TOTAL CELLS COUNTED 100 #CELLS
[2020-08-11 07:22] LABS: BURR CELLS FEW; DOHLE BODIES FEW; PLATELET SUFFICIENCY LOW (NORMAL); TOXIC GRANULATION SLIGHT; VACUOLATION OF NEUTROPHILS SLIGHT
--- NOTE | 2020-08-11 09:05 | NUR ---
Patients heart rate remains in the 130's. 1mg lopressor given. Heart rate comes down to 119. Monitoring
[2020-08-12] VITALS (56 sets, daily range): BP systolic 84–179; BP diastolic 54–95
--- NOTE | 2020-08-12 02:00 | NUR ---
PATIENT BATHED AT THIS TIME, TOLERATED WELL, HEARTRATE DID INCREASE TO 120'S TOWARDS THE END
--- NOTE | 2020-08-12 02:30 | NUR ---
DR BINGHAM NOTIFIED OF INCREASED HEARTRATE.
--- NOTE | 2020-08-12 02:57 | NUR ---
FENTANYL GIVEN FOR POSSIBLE PAIN R/T INCREASED HEARTRATE. RN WILL CONTINUE TO MONITOR
--- NOTE | 2020-08-12 03:57 | NUR ---
EARLIER MEDICATION NOT EFFECTIVE
--- NOTE | 2020-08-12 04:10 | NUR ---
PATIENT GIVEN TYLENOL AND ZOFRAN FOR POSSIBLE ISSUES THAT WOULD BE INCREASING THE HEARTRATE, RN WILL CONTINUE TO MONITOR
--- NOTE | 2020-08-12 05:10 | NUR ---
EARLIER MEDICATIONS NOT EFFECTIVE
[2020-08-12 05:51] LABS: ALBUMIN 2.6 gm/dl (3.1-4.5); ALKALINE PHOSPHATASE 120 U/L (45-117); BUN 19 mg/dl (7-24); CHLORIDE 118 mmol/L (98-107); CREATININE 1.02 mg/dL (0.55-1.02); POTASSIUM 3.2 mmol/L (3.5-5.1); SGOT/AST 43 IU/L (3-35); SGPT/ALT 16 U/L (12-78); SODIUM 147 mmol/L (136-145); TOTAL PROTEIN 4.9 gm/dL (6.4-8.2)
[2020-08-12 06:02] LABS: MEAN CELL VOLUME 83.9 fl (81.0-99.0); MEAN CORPUSCULAR HGB 28.1 pg (27.0-31.0); MEAN CORPUSCULAR HGB CONC 33.5 g/dl (33.0-37.0); MEAN PLATELET VOLUME 12.4 fl (9.6-12.3); NUCLEATED RED BLOOD CELL 0.1 10*3/uL (0.0-0.0); NUCLEATED RED BLOOD CELL 0.8 % (0.0-0.0); PLATELET COUNT AUTOMATED 68 10*3/uL (130-400); RED BLOOD COUNT 2.74 10*6/uL (4.10-5.10); RED CELL DISTRI WIDTH 14.9 % (0-14.5); WHITE BLOOD COUNT 14.5 10*3/uL (4.8-10.8)
[2020-08-12 06:24] LABS: BURR CELLS FEW; PLATELET SUFFICIENCY LOW (NORMAL); POLYCHROMASIA SLIGHT; SCHISTOCYTES FEW; TOTAL CELLS COUNTED 100 #CELLS; TOXIC GRANULATION SLIGHT; VACUOLATION OF NEUTROPHILS SLIGHT
--- NOTE | 2020-08-12 08:00 | NUR ---
SEDATED AND INTUBATED REMAINS ON LEVAPHED BUT BP IS IMPROVING WOUND VAC TO SURGICAL INCISION-DR NEW TO CHANGE TODAY ML AND ART LINES SECURE AND PATENT TURNED AND REPOSITIONED NICKO TURNED TO 20 FACIAL GRIMACES SEEN WITH NURSING CARE PT [place] AND WITH END STAGE DEMENTIA-UNCERTAIN TAHT SHE CAN UNDERSTAND HER PREDICAMENT
[2020-08-12 08:03] LABS: ARTERIAL BLOOD GAS PH 7.426 (7.35-7.45)
[2020-08-12 08:07] LABS: ABG BASE EXCESS -5.3 mmol/L (-2.0-2.0)
--- NOTE | 2020-08-12 08:30 | NUR ---
LEVAPHED TO 7
--- NOTE | 2020-08-12 09:15 | NUR ---
LEVAPHED TO 6
--- NOTE | 2020-08-12 10:30 | NUR ---
LEVAPHED TO 5
--- NOTE | 2020-08-12 11:00 | NUR ---
LEVAPHED TO 4
--- NOTE | 2020-08-12 11:45 | NUR ---
LEVAPHED TO 3
--- NOTE | 2020-08-12 12:11 | NUR ---
LEVAPHED TO 2
[2020-08-12 15:21] LABS: HEMATOCRIT 22.8 % (37.0-47.0); MEAN CORPUSCULAR HGB 28.3 pg (27.0-31.0); MEAN CORPUSCULAR HGB CONC 32.9 g/dl (33.0-37.0); MEAN PLATELET VOLUME 12.9 fl (9.6-12.3); NUCLEATED RED BLOOD CELL 0.1 10*3/uL (0.0-0.0); PLATELET COUNT AUTOMATED 64 10*3/uL (130-400); RED BLOOD COUNT 2.65 10*6/uL (4.10-5.10); RED CELL DISTRI WIDTH 15.1 % (0-14.5); WHITE BLOOD COUNT 14.4 10*3/uL (4.8-10.8)
[2020-08-12 15:43] LABS: PLATELET SUFFICIENCY LOW (NORMAL); TOTAL CELLS COUNTED 100 #CELLS; TOXIC GRANULATION SLIGHT; VACUOLATION OF NEUTROPHILS SLIGHT
--- NOTE | 2020-08-12 16:09 | NUR ---
300 CC DK GREENWITH CHUNKS OF HARD BROWN STOOL
--- NOTE | 2020-08-12 20:00 | NUR ---
Patient remains on vent, tolerating well. Does attempt to open eyes and moves lower ext.
--- NOTE | 2020-08-12 20:01 | NUR ---
10cc of residual in ng at this time.
--- NOTE | 2020-08-12 22:15 | NUR ---
Patient's bp dropped to 70/40, artline adjusted, and zeroed. Monitored for a short time, then it never went up, so levophed was started again.
[2020-08-13] VITALS: BP 105/53
--- NOTE | 2020-08-13 | NUR ---
Patient had 40cc of residual in ng tube.
--- NOTE | 2020-08-13 01:15 | NUR ---
Levophed off at this time. Patients blood pressure has sustained low 100/90's. with a map of 68-70. Will continue to monitor.
[2020-08-13 04:00] VITALS: BP 104/54
--- NOTE | 2020-08-13 04:00 | NUR ---
Patient had 40cc of residual in ng.
[2020-08-13 06:09] LABS: ALBUMIN 2.7 gm/dl (3.1-4.5); ALKALINE PHOSPHATASE 121 U/L (45-117); BUN 17 mg/dl (7-24); CHLORIDE 118 mmol/L (98-107); CREATININE 0.92 mg/dL (0.55-1.02); HEMATOCRIT 21.2 % (37.0-47.0); MEAN CELL VOLUME 83.5 fl (81.0-99.0); MEAN CORPUSCULAR HGB CONC 33.5 g/dl (33.0-37.0); MEAN PLATELET VOLUME 13.7 fl (9.6-12.3); NUCLEATED RED BLOOD CELL 0.2 10*3/uL (0.0-0.0); NUCLEATED RED BLOOD CELL 1.6 % (0.0-0.0); PLATELET COUNT AUTOMATED 53 10*3/uL (130-400); POTASSIUM 3.7 mmol/L (3.5-5.1); RED BLOOD COUNT 2.54 10*6/uL (4.10-5.10); RED CELL DISTRI WIDTH 14.8 % (0-14.5); SGOT/AST 39 IU/L (3-35); SGPT/ALT 14 U/L (12-78); SODIUM 146 mmol/L (136-145); TOTAL PROTEIN 4.8 gm/dL (6.4-8.2); WHITE BLOOD COUNT 9.2 10*3/uL (4.8-10.8)
--- NOTE | 2020-08-13 06:20 | NUR ---
Dr. Coleman notified of critical lab results. New orders will be put in.
[2020-08-13 06:38] LABS: BASOPHILS 1 % (0-1); TOTAL CELLS COUNTED 100 #CELLS
[2020-08-13 06:39] LABS: BURR CELLS FEW; OVALOCYTES FEW; POLYCHROMASIA SLIGHT; TOXIC GRANULATION SLIGHT; VACUOLATION OF NEUTROPHILS SLIGHT
[2020-08-13 06:40] LABS: PLATELET SUFFICIENCY LOW (NORMAL)
--- NOTE | 2020-08-13 07:27 | NUR ---
Repeat blood glucose test after dextrose reads 128.
[2020-08-13 08:00] VITALS: BP 116/56
--- NOTE | 2020-08-13 08:53 | NUR ---
INTUBATED, DIPROVAN REDUCED TO 5 MCG, PRESSORS OFF, REPOSITIONED, DR NEW UPDATED, TOLERATING WATER VIA NGT
[2020-08-13 09:05] LABS: ARTERIAL BLOOD GAS PH 7.431 (7.35-7.45)
[2020-08-13 12:00] VITALS: BP 126/62
--- NOTE | 2020-08-13 13:50 | NUR ---
SEDATION TURNED OFF
--- NOTE | 2020-08-13 15:30 | NUR ---
PLACED ON CPAP, TOLERATING WELL
[2020-08-13 16:00] VITALS: BP 113/59
[2020-08-13 17:40] LABS: ARTERIAL BLOOD GAS PH 7.373 (7.35-7.45)
[2020-08-13 17:41] LABS: ABG BASE EXCESS -5.1 mmol/L (-2.0-2.0)
--- NOTE | 2020-08-13 18:18 | NUR ---
REMAINS ON CPAP TILL 1930 TOLERATING WELL
--- NOTE | 2020-08-13 19:40 | NUR ---
CHANGED VENT MODE TO A/C PER ORDER. CPAP TRIAL TO BEGIN 08/14 AT 7AM
[2020-08-13 20:00] VITALS: BP 110/58
--- NOTE | 2020-08-13 21:30 | NUR ---
Dr. Moore in to see patient, no changes to report to him. Patients vital signs stable, off levophed, back on a/c mode until morning, light sedation. Colostomy draining liquid stool, dark green. Dr. Moore examined stoma and stated it was pink inside, the outside may sloth off. Continue with 30cc of water in ng, hold feedings until we see if patient will be weaned off vent. Wound vac to be changed on friday08/14/20.
[2020-08-14] VITALS: BP 102/58
--- NOTE | 2020-08-14 01:47 | NUR ---
Patient under no distress, tolerated bath well. All vital signs stable. Patient does attempt to open eyes.
--- NOTE | 2020-08-14 03:00 | NUR ---
V-incident report completed for finding water filled blister under drake drain bandage. Course Instructor notified, wound care notified, and pic and documentation completed.
[2020-08-14 04:00] VITALS: BP 116/57
[2020-08-14 06:03] LABS: HEMATOCRIT 21.9 % (37.0-47.0); MEAN CELL VOLUME 84.2 fl (81.0-99.0); MEAN CORPUSCULAR HGB 28.1 pg (27.0-31.0); MEAN CORPUSCULAR HGB CONC 33.3 g/dl (33.0-37.0); MEAN PLATELET VOLUME 13.1 fl (9.6-12.3); NUCLEATED RED BLOOD CELL 0.2 10*3/uL (0.0-0.0); RED CELL DISTRI WIDTH 14.9 % (0-14.5); WHITE BLOOD COUNT 9.6 10*3/uL (4.8-10.8)
[2020-08-14 06:31] LABS: ALBUMIN 2.8 gm/dl (3.1-4.5); BUN 17 mg/dl (7-24); CHLORIDE 115 mmol/L (98-107); CREATININE 0.83 mg/dL (0.55-1.02); POTASSIUM 3.1 mmol/L (3.5-5.1); SGOT/AST 44 IU/L (3-35); SGPT/ALT 12 U/L (12-78); SODIUM 142 mmol/L (136-145)
[2020-08-14 06:37] LABS: ALKALINE PHOSPHATASE 127 U/L (45-117)
--- NOTE | 2020-08-14 06:44 | NUR ---
DEXTROSE GIVEN FOR A BS OF 33. WILL REASSESS.
--- NOTE | 2020-08-14 07:10 | NUR ---
PATIENT PLACED IN C-PAP +5, PSV +10.
[2020-08-14 07:21] LABS: PLATELET COUNT AUTOMATED 74 10*3/uL (130-400)
[2020-08-14 07:25] LABS: PLATELET SUFFICIENCY LOW (NORMAL); ROULEAUX MODERATE; TOTAL CELLS COUNTED 100 #CELLS
[2020-08-14 08:00] VITALS: BP 129/59
--- NOTE | 2020-08-14 08:00 | NUR ---
PT IS AWAKE AND ALERT. SEDATION HAS BEEN ON HOLD SINCE 5AM. PT IS CURRENTLY ON CPAP SETTINGS ON VENT. POX 98%. RESP RATE 21. TIDAL VOLUME 426 AT PRESENT. PT SEEMS TO BE TOLERATING CPAP WELL AT THIS TIME. FEW SCATTERED RHONCHI NOTED IN LUNG MART. SUCTIONED PT FOR VERY SMALL AMOUNT OF WHITE MUCUS. NGT PLACMENT VERIFIED WITH AN AIR BOLUS. WATER CONTINUES TO INFUSE AT 30CC/HR INTO NGT. ABD. DISTENDED. UNABLE TO HEAR BOWEL SOUNDS BUT COLOSTOMY DRAINING DARK GREEN LIQUID. WOUND VAC TO SURGICAL SITE CONTINUES. SITE ASYMP. AVILA PATENT FOR STRAW COLORED URINE. TEDS/SCDS BILAT. EDEMA NOTED TO ALL EXTREMITIES. DRESSING INTACT TO BLISTER SITE. PT UPDATED ON HER CONDITION AND PLAN OF CARE. WILL CONTINUE TO MONITOR PT.
[2020-08-14 09:25] LABS: ARTERIAL BLOOD GAS PH 7.405 (7.35-7.45)
[2020-08-14 09:26] LABS: ABG BASE EXCESS -5.2 mmol/L (-2.0-2.0)
--- NOTE | 2020-08-14 09:42 | NUR ---
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 Currently on a vent.
--- NOTE | 2020-08-14 11:00 | NUR ---
DR FRIEDMAN IN TO SEE PT. ORDERS RECEIVED FOR EXTUBATION.
--- NOTE | 2020-08-14 11:35 | NUR ---
PT EXTUBATED TO 2L NC. PT TOLERATED PROCEDURE WELL.
--- NOTE | 2020-08-14 11:40 | NUR ---
PATIENT EXTUBATED, PLACED ON 2 L/M. PULSE OX 98%.
[2020-08-14 12:00] VITALS: BP 123/57
--- NOTE | 2020-08-14 13:42 | NUR ---
BEDSIDE GLUCOSE 56. 1 AMP D50 GIVEN PER PRN ORDER. WILL UPDATE DOCTOR.
--- NOTE | 2020-08-14 14:30 | NUR ---
GILLIAN RAJAN, SURGICAL PRESCRIPTIONIST, HERE TO SEE PT. UPDATED HER ON PT NOT AWAKE ENOUGH TO BE ABLE TO EAT AND SEVERAL HYPOGLYCEMIC EPISODES. SHE ALSO VIEWED PT'S WOUND VAC SITE. NEW ORDERS RECEIVED. WOUND VAC TO BE CHANGED IN AM.
[2020-08-14 16:00] VITALS: BP 133/62
[2020-08-14 20:00] VITALS: BP 127/62; BP 130/59
--- NOTE | 2020-08-14 20:58 | NUR ---
PT. RESTING IN BED COMMFORTABLY, VERY [place], AWAKE AND ALERT. DOES NOT VERBALIZE AT PRESENT. TPN AND LIPIDS INFUSING VIA RIGHT MLC. ART LINE IN R RADIAL LEVELED, ZEROED AND FLUSHED. COLOSTOMY DRAINING A DARK BROWN/GREEN LIQUID. ROXIE DRAINING A SEROSANGUINESS DRAINAGE. WOUND VAC DRAINING A DARK RED/BROWN DRAINAGE. PT. GIVEN ORAL CARE AND SUCTIONED WITH CATH AND GLOVE FOR MODERATE AMT OF YELLOW MUCOUS. MUCH LESS MOIST AT PRESENT. FARHAT HENRY RN
[2020-08-15] VITALS: BP 127/88; BP 128/58
[2020-08-15 04:00] VITALS: BP 131/61
[2020-08-15 06:11] LABS: BUN 17 mg/dl (7-24); CHLORIDE 114 mmol/L (98-107); CREATININE 0.96 mg/dL (0.55-1.02); POTASSIUM 3.5 mmol/L (3.5-5.1); SGOT/AST 36 IU/L (3-35); SGPT/ALT 13 U/L (12-78); SODIUM 143 mmol/L (136-145)
[2020-08-15 06:13] LABS: ALKALINE PHOSPHATASE 153 U/L (45-117); TOTAL PROTEIN 5.2 gm/dL (6.4-8.2)
[2020-08-15 06:37] LABS: HEMATOCRIT 23.2 % (37.0-47.0); MEAN CORPUSCULAR HGB 27.9 pg (27.0-31.0); MEAN CORPUSCULAR HGB CONC 31.5 g/dl (33.0-37.0); MEAN PLATELET VOLUME 13.3 fl (9.6-12.3); NUCLEATED RED BLOOD CELL 0.5 10*3/uL (0.0-0.0); NUCLEATED RED BLOOD CELL 2.7 % (0.0-0.0); RED BLOOD COUNT 2.62 10*6/uL (4.10-5.10); RED CELL DISTRI WIDTH 15.8 % (0-14.5); WHITE BLOOD COUNT 17.3 10*3/uL (4.8-10.8)
[2020-08-15 06:40] LABS: MEAN CELL VOLUME 88.5 fl (81.0-99.0)
[2020-08-15 06:41] LABS: PLATELET COUNT AUTOMATED 126 10*3/uL (130-400)
[2020-08-15 06:54] LABS: TOTAL CELLS COUNTED 100 #CELLS; TOXIC GRANULATION SLIGHT
[2020-08-15 06:55] LABS: BURR CELLS FEW; OVALOCYTES FEW; PLATELET SUFFICIENCY LOW (NORMAL); VACUOLATION OF NEUTROPHILS SLIGHT
--- NOTE | 2020-08-15 07:51 | NUR ---
Shift chart check completed.24 HR chart check completed.
[2020-08-15 08:00] VITALS: BP 131/56
[2020-08-15 08:28] LABS: ABG BASE EXCESS -5.9 mmol/L (-2.0-2.0); ARTERIAL BLOOD GAS PH 7.299 (7.35-7.45)
--- NOTE | 2020-08-15 09:00 | NUR ---
CM in to see patient. 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
--- NOTE | 2020-08-15 10:10 | NUR ---
Wound Vac changed to midline abdominal incision per Dr. Brice's orders. Patient tolerated activity well. During wound vac dressing changed ostomy applicance was changed prior to removal of wound vac dressing. Dr. Winkler as well as Dr. Marsh at bedside and was informed of the color of the stoma which was dark green/brown in color. Dr. Winkler states that Dr. Brice is aware of this and stated that it was okay and to just clean the stoma and apply a new appliance. Wound vac was set to 125mmHg low continous at time of wound vac change. Wound vac canister changed as well at this time. This nurse along with Roslyn PAINTING completed dressing change at this time. Wound Measure 23.0cm x 8.5cm x 3.2cm. Wound Color was red, yellow. One suture showing in middle of surgical incision. Serosanguneious drainage noted during dressing change.
--- NOTE | 2020-08-15 11:05 | NUR ---
Nutritional Support Services Note: Tube feedings at this time of Pulmocare at 20cc per hour. Ht.5'4 Wt.152# IBW 110-130#. She requires 1600cal daily to maintain current wt. Pulmocare needs increased to 45cc/hr continuous. Will provide pt with 1080cc/1620cal daily. She requires appro. 2000cc of fluid daily, TF will provide pt with 972cc of fluid daily. An additional 1028cc of fluid will be needed. Will follow as needed. Karine Mayes Rdn Ld
[2020-08-15 12:00] VITALS: BP 153/63
--- NOTE | 2020-08-15 12:28 | NUR ---
PT. ON NC 2.5 L, SAT 98, HEART RATE 100, RESP. 22.
[2020-08-15 16:00] VITALS: BP 155/71
[2020-08-15 20:00] VITALS: BP 140/66
--- NOTE | 2020-08-15 20:06 | NUR ---
PT. EXTREMELY MOIST, PEDIATRICIAN ACTIVE PRACTICE COUGH. DR. GARCIA NOTIFIED AND REQUESTED HE COME TO ICCU TO SEE PT. ALSO INFORMED HIM OF 150CC'S H20 TO BE GIVEN Q8H VIA NG IN ADDITION TO TUBE FEEDINGS. FARHAT HENRY RN
--- NOTE | 2020-08-15 20:48 | NUR ---
PT. RESTING IN BED. REMAINS VERY MOIST WITH REAL ESTATE ACCOUNT EXECUTIVE COUGH. LASIX GIVEN ORDERED PER DR. GARCIA AND IVF BOLUS VIA NG TO BE HELD. LUNGS HAVE RHONCHI, EXP. WHEEZES BILAT, PRN BREATHING TR ORDERED. DR. NEW CALLED IN TO CHECK PT STATUS. ABDOMEN FIRMLY DISTENDED WITH ROXIE AND COLOSTOMY NOTED. COLOSTOMY DRAINING A DARK BROWN LIQUID. WOUND VAC MIDLINE INTACT. AVILA CATHETER DRAINING A CLEAR YELLOW URINE.
--- NOTE | 2020-08-15 21:15 | NUR ---
PT. DESATING, DEEP SUCTIONED FOR SMALL AMT OF MUCOUS VIA NARES INTO THROAT PATIENT IS BITING ON SUCTION CATHETER AND UNABLE TO SUCTION ORALLY. PT PLACED ON 35% VENTURI MASK, 50% VENTURI MASK THEN 100% NONREBREATHER, BREATHING TREATMENT IN PROGRESS. DR. BINGHAM IN TO SEE PATIENT HE WAS ALSO UPDATED TO STATUS. DR. BINGHAM CALLED DAUGHTER AND UPDATED TO PT STATUS AND CONFIRMED CODE STATUS. PERMISSION FOR PATIENTS DAUGHTER CATHMAY TO COME TO SEE PATIENT IN ICCU. TALKED WITH PATIENTS DAUGHTER TO UPDATE TO STATUS PRIOR TO COMING IN TO SEE MOTHER. DAUGHTER STATED PATIENT DID NOT WANT TO BE KEPT ALIVE BY MACHINES. WILL CONFIRM CODE STATUS UPON PATIENTS DAUGHTERS ARRIVAL. FARHAT HENRY RN
[2020-08-15 21:56] LABS: ABG BASE EXCESS -6.9 mmol/L (-2.0-2.0); ARTERIAL BLOOD GAS PH 7.118 (7.35-7.45)
--- NOTE | 2020-08-15 22:00 | NUR ---
DR. FRIEDMAN CALLED TO UPDATE TO PATIENT STATUS, MESSAGE LEFT ON ANSWERING MACHINE TO RETURN CALL. AWAITING RETURN CALL.
--- NOTE | 2020-08-15 22:20 | NUR ---
DR. FRIEDMAN RETURNED CALL, ORDERS RECEIVED. FARHAT HENRY RN
--- NOTE | 2020-08-15 22:33 | NUR ---
DAUGHTER AT BEDSIDE. CRYING. STATED SHE DOESNT WANT TO PUT HER MOM THROUGH ANY MORE. DECISION TO CHANGE CODE STATUS TO DNR COMFORT CARE WITNESSED BY MERT KENDALL DR. AWARE AND DR. FRIEDMAN AWARE.
--- NOTE | 2020-08-15 23:40 | NUR ---
PT'S HR AND B/P DECREASING, PULSE OX REMAINS DECREASING INTO 60%, MORPHINE GIVEN FOR AGONAL BREATHING FOR COMFORT. 2350 - PT. DESATING, DEEP SUCTIONED AND ORAL CARE GIVEN. DAUGHTER AT BEDSIDE.
--- NOTE | 2020-08-16 00:09 | NUR ---
DAUGHTER REMAINS AT BEDSIDE. PT CEASED TO BREATH, NO HR AUDIBLE OR PALPABLE, NO B/P OBTAINED. TIME OF 0003. DR. BINGHAM NOTIFIED. WILL NOTIFY CONSULTS IN AM. DAUGHTER REMAINS AT BEDSIDE. FARHAT HENRY RN
--- NOTE | 2020-08-16 01:46 | NUR ---
PT. DISCHARGED IN CARE OF [facility]. NO BELONGINGS WITH PATIENT. FARHAT HENRY RN
--- NOTE | 2020-08-16 07:05 | NUR ---
ELDER BIGGS, KIMBERLY NOTIFIED OF PTS .
== END 2020-08-16 02:52 | disposition expired | DRG 853 ==
LOC: ED 22:43 → EDHOLD 08-09 03:26 → ICCU 08-09 03:26
PROVIDERS: Family Medicine; Internal Medicine; Internal Medicine Critical Care Medicine; Student in an Organized Health Care Education/Training Program; ADMIT Internal Medicine; ATTEND Internal Medicine
PROC: 0DTM0ZZ Resection of Descending Colon, Open Approach (ICD-10-PCS; principal; 2020-08-09)
PROC: 0DTN0ZZ Resection of Sigmoid Colon, Open Approach (ICD-10-PCS; 2020-08-09)
PROC: 07TP0ZZ Resection of Spleen, Open Approach (ICD-10-PCS; 2020-08-09)
PROC: 5A1955Z Respiratory Ventilation, Greater than 96 Consecutive Hours (ICD-10-PCS; 2020-08-09)
PROC: 30233N1 Transfusion of Nonautologous Red Blood Cells into Peripheral Vein, Percutaneous Approach (ICD-10-PCS; 2020-08-09)
PROC: 0D1L0Z4 Bypass Transverse Colon to Cutaneous, Open Approach (ICD-10-PCS; 2020-08-09)
PROC: 02H633Z Insertion of Infusion Device into Right Atrium, Percutaneous Approach (ICD-10-PCS; 2020-08-09)
PROC: 03HY32Z Insertion of Monitoring Device into Upper Artery, Percutaneous Approach (ICD-10-PCS; 2020-08-09)
PROC: 4A133B1 Monitoring of Arterial Pressure, Peripheral, Percutaneous Approach (ICD-10-PCS; 2020-08-09)
PROC: 4A133J1 Monitoring of Arterial Pulse, Peripheral, Percutaneous Approach (ICD-10-PCS; 2020-08-09)
PROC: 3E0336Z Introduction of Nutritional Substance into Peripheral Vein, Percutaneous Approach (ICD-10-PCS; 2020-08-14)
PROC: 5A09357 Assistance with Respiratory Ventilation, Less than 24 Consecutive Hours, Continuous Positive Airway Pressure (ICD-10-PCS; 2020-08-14)
DX: A41.50 Gram-negative sepsis, unspecified (principal); K63.1 Perforation of intestine (nontraumatic); N17.0 Acute kidney failure with tubular necrosis; J96.00 Acute respiratory failure, unspecified whether with hypoxia or hypercapnia; R65.21 Severe sepsis with septic shock; K65.9 Peritonitis, unspecified; E43 Unspecified severe protein-calorie malnutrition; K92.2 Gastrointestinal hemorrhage, unspecified; E87.2 Acidosis; E87.0 Hyperosmolality and hypernatremia; Z99.11 Dependence on respirator [ventilator] status; E87.8 Other disorders of electrolyte and fluid balance, not elsewhere classified; R73.9 Hyperglycemia, unspecified; R74.8 Abnormal levels of other serum enzymes; F32.9 Major depressive disorder, single episode, unspecified; J44.9 Chronic obstructive pulmonary disease, unspecified; G30.9 Alzheimer's disease, unspecified; M81.0 Age-related osteoporosis without current pathological fracture; D64.9 Anemia, unspecified; I12.9 Hypertensive chronic kidney disease with stage 1 through stage 4 chronic kidney disease, or unspecified chronic kidney disease; N18.30 Chronic kidney disease, stage 3 unspecified; D69.59 Other secondary thrombocytopenia; E87.6 Hypokalemia; T50.2X5A Adverse effect of carbonic-anhydrase inhibitors, benzothiadiazides and other diuretics, initial encounter; Y92.238 Other place in hospital as the place of occurrence of the external cause; E83.42 Hypomagnesemia; Z20.828 Contact with and (suspected) exposure to other viral communicable diseases; E83.39 Other disorders of phosphorus metabolism; R74.01 Elevation of levels of liver transaminase levels; I48.91 Unspecified atrial fibrillation; M19.90 Unspecified osteoarthritis, unspecified site; F02.80 Dementia in other diseases classified elsewhere, unspecified severity, without behavioral disturbance, psychotic disturbance, mood disturbance, and anxiety; Z88.0 Allergy status to penicillin; Z88.8 Allergy status to other drugs, medicaments and biological substances; Z91.018 Allergy to other foods; Z86.73 Personal history of transient ischemic attack (TIA), and cerebral infarction without residual deficits; Z90.710 Acquired absence of both cervix and uterus; Z80.8 Family history of malignant neoplasm of other organs or systems; Z79.899 Other long term (current) drug therapy; Z79.02 Long term (current) use of antithrombotics/antiplatelets; Z68.26 Body mass index [BMI] 26.0-26.9, adult